=== PATIENT | female | born 1980 | race Caucasian/White ===

== ENCOUNTER 2016-10-17 11:11 | Inpatient (IN) | payer SELFPAY ==
[~2016-10-17] VITALS: Ht 170.2 cm; Wt 88.3 kg
[2016-10-17] VITALS (20 sets, daily range): BP systolic 110–217; BP diastolic 66–108; PULSE 135–156; RESP 28–39; TEMP 95.2–98.3; O2SAT 85–100
[~2016-10-17 11:11] MED LIST: IBUP800T23 PO
[2016-10-17] MEDS ORDERED: SODIUM CHLOR 0.9% 1000 ML INJ 1,000 ML IV SCH (11:22)
[2016-10-17] MEDS ORDERED: SODIUM CHLORIDE 0.9% FLUSH 5 ML FLUSH IVF PRN (11:30)
--- NOTE | 2016-10-17 11:54 | PD ---
HPI Chief Complaint: OD/ Ingestion Time Seen by Provider: 11:21 Travel History International Travel<30 days: No Contact w/Intl Traveler<30days: No Traveled to known affect area: No History of Present Illness HPI Patient is a 36-year-old female brought in by EMS after sustaining a PE arrest at home. According to bystanders on the scene patient is an IV drug user and Apparently Injected street Dilaudid and has been taking [place] as well as Xanax. She had a 90 day supply of Xanax filled 3 days ago and all but10 pills are missing. Patient was coded in the field for a PDA arrest, she received bicarbonate 3 ampules of epinephrine, 2 mg of Narcan was intubated with an ET tube and had ROSC prior to arrival. History is extremely limited by the patient being intubated. [facility] Past Medical History Diminished Hearing: No ?: Unknown Social History Alcohol Use: No Tobacco Use: No Substance Use: Yes (dilaudid) Allergies-Medications (Allergen,Severity, Reaction): Coded Allergies: Penicillin (Verified Allergy, Unknown, 10/17/16) Reported Meds & Prescriptions Reported Meds & Active Scripts Active Ibuprofen 800 Mg Tab 800 Mg PO Q8HR PRN Reported Tegretol (Carbamazepine) 200 Mg Tab 200 Mg PO BID Review of Systems Except as stated in HPI: all other systems reviewed are Neg Physical Exam Narrative GENERAL: Well-developed, overweight white female intubated and comatose. SKIN: Warm and dry. No bruising or lacerations seen on her person. There is a track levi in the left AC fossa. HEAD: Atraumatic. Normocephalic. EYES: Pupils equal and round fixed and dilated. No scleral icterus. No injection or drainage. Vestibular ocular reflex is not present. ENT: No nasal bleeding or discharge. Mucous membranes pink and moist. NECK: Trachea midline. No JVD. CARDIOVASCULAR: Regular rhythm with tachycardia to the 150s. No murmur appreciated. Thready pulses in extremities bounding carotid pulses. RESPIRATORY: Apneic, intubated. [id number] in process. GASTROINTESTINAL: Abdomen soft, non-tender, nondistended. Hepatic and splenic margins not palpable. MUSCULOSKELETAL: No obvious deformities. No clubbing. No cyanosis. No edema. NEUROLOGICAL: GCS of 3 not on sedation. No response to pain no movement of her extremities. PSYCHIATRIC: Unable to assess. Data Data Last Documented VS Vital Signs Date Time Temp Pulse Resp B/P Pulse Ox O2 Delivery O2 Flow Rate FiO2 10/17/16 13:17 97.7 135 160/66 10/17/16 13:07 Ventilator 10/17/16 12:29 100 10/17/16 12:22 100 Orders Electrocardiogram (10/17/16 11:22) Alcohol (Ethanol) (10/17/16 11:22) Ammonia (10/17/16 11:22) Complete Blood Count With Diff (10/17/16 11:22) Comprehensive Metabolic Panel (10/17/16 11:22) Creatine Kinase (Cpk) (10/17/16 11:22) Prothrombin Time / Inr (Pt) (10/17/16 11:22) Act Partial Throm Time (Ptt) (10/17/16 11:22) Salicylates (Aspirin) (10/17/16 11:22) Troponin I (10/17/16 11:22) Tylenol (Acetaminophen) (10/17/16 11:22) Thyroid Stimulating Hormone (10/17/16 11:22) Urinalysis - C+S If Indicated (10/17/16 11:22) Arterial Blood Gas (Abg) (10/17/16 11:22) Blood Culture (10/17/16 11:22) Chest, Single Ap (10/17/16 11:22) Ct Brain W/O Iv Contrast(Rout) (10/17/16 11:22) Blood Glucose (10/17/16 11:22) Ecg Monitoring (10/17/16 11:22) Iv Access Insert/Monitor (10/17/16 11:22) Oximetry (10/17/16 11:22) Urinary Catheter Insert/Apply (10/17/16 11:22) Sodium Chloride 0.9% Flush (Ns Flush) (10/17/16 11:30) Sodium Chlor 0.9% 1000 Ml Inj (Ns 1000 M (10/17/16 11:22) Lactic Acid (10/17/16 11:23) Sodium Bicarbonate 8.4% Inj (Sodium Bica (10/17/16 12:00) Propofol 1000 Mg/100 Ml Inj (Diprivan 10 (10/17/16 12:15) ^ Infusion (10/17/16 12:13) RASS (10/17/16 12:13) Neurological Rass Scale JOSE MIGUEL.Q2H (10/17/16 12:13) Urine Culture (10/17/16 11:40) Vancomycin Inj (Vancomycin Inj) (10/17/16 12:30) Aztreonam Inj (Azactam Inj) (10/17/16 13:00) Potassium Chlor 20 Meq Premix (Kcl 20 Me (10/17/16 12:30) Chest, Single Ap (10/17/16 ) Vecuronium 10 Mg Inj (Norcuron 10 Mg Inj (10/17/16 13:15) Cta Brain W Iv Contrast W 3d (10/17/16 ) Consult Neurosurgery (10/17/16 ) Admit Order (Ed Use Only) (10/17/16 ) Labs Laboratory Tests Test 10/17/16 10/17/16 10/17/16 11:36 11:40 11:43 Lactic Acid Level 11.1 mmol/L Ammonia 95 MCMOL/L White Blood Count 13.2 TH/MM3 Red Blood Count 4.71 MIL/MM3 Hemoglobin 12.7 GM/DL Hematocrit 41.0 % Mean Corpuscular Volume 86.9 FL Mean Corpuscular Hemoglobin 27.0 PG Mean Corpuscular Hemoglobin 31.1 % Concent Red Cell Distribution Width 16.9 % Platelet Count 184 TH/MM3 Mean Platelet Volume 10.0 FL Neutrophils (%) (Auto) 60.9 % Lymphocytes (%) (Auto) 32.5 % Monocytes (%) (Auto) 5.0 % Eosinophils (%) (Auto) 1.0 % Basophils (%) (Auto) 0.6 % Neutrophils # (Auto) 8.0 TH/MM3 Lymphocytes # (Auto) 4.3 TH/MM3 Monocytes # (Auto) 0.7 TH/MM3 Eosinophils # (Auto) 0.1 TH/MM3 Basophils # (Auto) 0.1 TH/MM3 CBC Comment AUTO DIFF Differential Total Cells 100 Counted Neutrophils % (Manual) 50 % Band Neutrophils % 1 % Lymphocytes % 39 % Monocytes % 2 % Eosinophils % 2 % Neutrophils # (Manual) 7.5 TH/MM3 Metamyelocytes 2 % Myelocytes 4 % Differential Comment FINAL DIFF MANUAL Atypical Lymphocytes % Platelet Estimate NORMAL Platelet Morphology Comment NORMAL Red Cell Morphology Comment NORMAL Prothrombin Time 11.6 SEC Prothromb Time International 1.0 RATIO Ratio Activated Partial 26.9 SEC Thromboplast Time Urine Color YELLOW Urine Turbidity HAZY Urine pH 6.0 Urine Specific [place] 1.013 Urine Protein 100 mg/dL Urine Glucose (UA) 300 mg/dL Urine Ketones NEG mg/dL Urine Occult Blood SMALL Urine Nitrite NEG Urine Bilirubin NEG Urine Urobilinogen LESS THAN 2.0 MG/DL Urine Leukocyte Esterase NEG Urine RBC 6 /hpf Urine WBC 20 /hpf Urine Squamous Epithelial <1 /hpf Cells Urine Amorphous Sediment RARE Urine Bacteria FEW /hpf Microscopic Urinalysis Comment CATH-CULTURE IND Sodium Level 137 MEQ/L Potassium Level 2.8 MEQ/L Chloride Level 100 MEQ/L Carbon Dioxide Level 17.7 MEQ/L Anion Gap 19 MEQ/L Blood Urea Nitrogen 9 MG/DL Creatinine 1.51 MG/DL Estimat Glomerular Filtration 39 ML/MIN Rate Random Glucose 311 MG/DL Calcium Level 8.3 MG/DL Total Bilirubin 0.4 MG/DL Aspartate Amino Transf 48 U/L (AST/SGOT) Alanine Aminotransferase 58 U/L (ALT/SGPT) Alkaline Phosphatase 110 U/L Total Creatine Kinase 104 U/L Troponin I LESS THAN 0.02 NG/ML Total Protein 6.9 GM/DL Albumin 3.4 GM/DL Thyroid Stimulating Hormone 2.530 uIU/ML 3rd Gen Salicylates Level 3.9 MG/DL Urine Opiates Screen NEG Acetaminophen Level LESS THAN 2.0 MCG/ML Urine Barbiturates Screen NEG Urine Amphetamines Screen NEG Urine Benzodiazepines Screen POS Urine Cocaine Screen NEG Urine Cannabinoids Screen POS Ethyl Alcohol Level LESS THAN 3 MG/DL Blood Gas Puncture Site RT RADIAL Blood Gas Patient Temperature 98.6 Blood Gas HCO3 16 mmol/L Blood Gas Base Excess -10.4 mmol/L Blood Gas Oxygen Saturation 83 % Arterial Blood pH 7.25 Arterial Blood Partial 37 mmHg Pressure CO2 Arterial Blood Partial 67 mmHG Pressure O2 Arterial Blood Oxygen Content 16.7 Vol % Arterial Blood 3.7 % Carboxyhemoglobin Arterial Blood Methemoglobin 2.2 % Blood Gas Hemoglobin 14.3 G/DL Oxygen Delivery Device VENTILATOR Blood Gas Ventilator Setting AC/20/500/+10 Blood Gas Inspired Oxygen 60 % [facility] Medical Decision Making Medical Screen Exam Complete: Yes Emergency Medical Condition: Yes Interpretation(s) EKG shows sinus tachycardia at a rate of 141 with normal axis and normal R-wave progression. No concerning ST T changes at this time. Intervals within normal limits. This normal EKG except for rate. Differential Diagnosis Cardiac arrest, drug overdose, urinary tract infection, lactic acidosis, ARDS, respiratory failure with hypoxia, aspiration, subarachnoid hemorrhage per Narrative Course Patient was roomed in the emergency department, initially very thready pulses in her upper extremities and a bounding carotid pulse after situated in the bed patient again having bounding pulses in all 4 extremities. Blood pressures perfusable. ABG shows metabolic acidosis with bicarbonate 15.5 and a pH is 7.24. Initial chest x-ray showed right mainstem intubation, initially a 7-1/2 ET tube 26 at the lip was retracted to 24 that radiology recommendations was retracted another 2 cm to 22. Patient's saturations initially were 88 1 she had cold extremities initial core temperature of 95 Fahrenheit. Will allow for permissive hypothermia at this time given her cardiac arrest. CT head negative chest x-ray otherwise negative. Patient's family arrives and according to her patient has recently relapsed into IV Dilaudid use, he states he went to the bathroom and left her alone only for a few moments and when he returned she was unconscious with a needle lying on her chest. He placed cold wash cloths on her forehead and then called 911. No one instructed him to start CPR on scene which she did it was only doing so for a few minutes before paramedics arrived. He states that the patient also has a history of seizure disorder. Patient was then reassessed and is now having some viral gag reflex on the ET tube. She still remains a GCS of 3 unresponsive to painful stimuli. Pupils remained fixed and dilated and there is an absent vestibular ocular reflex. Patient will be placed on propofol drip given a history of seizure disorder. After CT scan of the head, patient had desaturation event to 75% on 100% FiO2 peep of 10. She was disconnected from the vent and placed on [id number] with Peep valve and saturation yifan to 92%. Patient did have red frothy sputum from the ET tube. Repeat chest x-ray does show that she has pulmonary edema and consistent with possible ARDS. Patient ET tube was still right main stem and was retracted and again another 2 cm. Patient's saturation was able to be maintained at 92%. Patient CAT scan read comes back as possible subarachnoid hemorrhage. She was discussed with Dr. Riley who will see in consultation. Patient discussed with Dr. Unger who will place orders for Dr. Palencia who is in the SICU. Dr. Jackson has come to see the patient and assumed care. Patient remains in critical condition. She is being sedated on propofol. She has orders for vecuronium if she continues to fight the vent with her gag. She is still had no response to painful stimuli. Repeat CTA of the head and neck has been ordered and is still pending at time of admission. Critical Care Narrative Aggregate critical care time was 30 minutes. Time to perform other separately billable procedures was not included in the critical care time. My time did not include minutes spent treating any other patients simultaneously or on activities that did not directly contribute to the patient's treatment. The services I provided to this patient were to treat and/or prevent clinically significant deterioration that could result in: , disability, and organ failure. I provided critical care services requiring my management, as noted below: Chart data review, documentation time, medication orders and management, vital sign assessments/reviewing monitor data, ordering and reviewing lab tests, ordering and interpreting/reviewing x-rays and diagnostic studies, care of the patient and discussion of the patient with the admitting physicians. Diagnosis Primary Impression: Cardiac arrest Additional Impressions: Drug overdose Qualified Code: T50.904A - Drug overdose, undetermined intent, initial encounter Urinary tract infection Qualified Code: N39.0 - Urinary tract infection without hematuria, site unspecified Lactic acidosis Coma Qualified Code: R40.2431 - [place] coma scale total score 3-8, in the field ( EMT or ambulance) ARDS (adult respiratory distress syndrome) Acute respiratory failure with hypoxia Subarachnoid hemorrhage Admitting Information Admitting Physician Requests: Admit Condition: Critical Hiren Sheppard MD Oct 17, 2016 11:53
[2016-10-17] MEDS ORDERED: SODIUM BICARBONATE 8.4% INJ 50 MEQ/50 ML SYR IV PUSH ONE (12:00)
--- NOTE | 2016-10-17 12:00 | RADRPT ---
EXAM DATE/TIME: 10/17/2016 11:39 [facility] COMPARISON: No previous studies available for comparison. INDICATIONS : Syncope, ET tube, NG tube placement MEDICAL HISTORY : unobtainable SURGICAL HISTORY : unobtainable ENCOUNTER: Initial ACUITY: 1 day PAIN SCORE: 0/10 LOCATION: Bilateral chest FINDINGS: The cardiac silhouette is enlarged in transverse diameter. Endotracheal tube is in the right mainstem bronchus and should be retracted 4 cm. There is left lower lobe atelectasis versus pneumonia. There is also atelectasis in the right upper lobe. A nasogastric tube is in place with its tip in the stoma ch. CONCLUSION: 1. Endotracheal tube in the right mainstem bronchus. This Should be retracted 4 cm Les Hairston MD on October 17, 2016 at 11:56 Board Certified Radiologist. This report was verified electronically.
[2016-10-17 12:11] LABS: BASOPHIL # 0.1 TH/MM3 (0-0.2); BASOPHIL % 0.6 % (0.0-2.0); EOSINOPHIL # 0.1 TH/MM3 (0-0.4); HEMO FLAGS AUTO DIFF; LYMPH % 32.5 % (9.0-44.0); LYMPHOCYTE # 4.3 TH/MM3 (1.0-4.8); MEAN CELL VOLUME 86.9 FL (80.0-100.0); MEAN CORPUSCULAR HGB CONC 31.1 % (32.0-36.0); NEUT % 60.9 % (16.0-70.0); PLATELET COUNT 184 TH/MM3 (150-450); RED BLOOD COUNT 4.71 MIL/MM3 (4.00-5.30); RED CELL DISTRIBUTION WIDTH 16.9 % (11.6-17.2); WHITE BLOOD COUNT 13.2 TH/MM3 (4.0-11.0)
[2016-10-17 12:15] LABS: BACTERIA, URINE FEW /hpf; BLOOD, URINE SMALL (NEG); COMMENT (UR) CATH-CULTURE IND; CULTURE IF INDICATED CATH CULTURE IND; GLUCOSE,URINE 300 mg/dL (NEG); KETONE, URINE NEG (NEG); NITRITE,URINE NEG (NEG); SQUAMOUS EPITHELIAL CELL URINE <1 /hpf (0-5); URINE COLOR YELLOW (YELLW/STRAW)
[2016-10-17 12:20] LABS: BLOOD GAS BASE EXCESS -10.4 mmol/L (-2-2); BLOOD GAS CARBOXYHEMOGLOBIN 3.7 % (0-4); BLOOD GAS HCO3 16 mmol/L (22-26); BLOOD GAS METHEMOGLOBIN 2.2 % (0-2); BLOOD GAS O2 HGB SATURATION 83 % (90-100); BLOOD GAS OXYGEN CONTENT 16.7 Vol % (12.0-20.0); BLOOD GAS PCO2 37 mmHg (38-42); BLOOD GAS PO2 67 mmHG (61-120); BLOOD GAS TOTAL HGB 14.3 G/DL (12.0-16.0); CRITICAL VALUE YES; TEMP CORR TO 98.6
[2016-10-17 12:21] LABS: DRAW SITE RT RADIAL; FIO2 60 %; NUMBER OF ARTERIAL PUNCTURES 1; OXYGEN DEVICE VENTILATOR; STAT YES; ULNAR PULSE PRESENT; VENT SETTINGS AC/20/500/+10
[2016-10-17 12:23] LABS: APTT (PATIENT) 26.9 SEC (24.3-30.1); PROTHROMBIN TIME - PATIENT 11.6 SEC (9.8-11.6)
[2016-10-17] MEDS: PROPOFOL 1000 MG/100 ML INJ 100 ML IV SCH ×2 (12:23→17:34)
[2016-10-17 12:28] LABS: ANION GAP 19 MEQ/L (5-15); AST (GOT) 48 U/L (15-37); BICARBONATE 17.7 MEQ/L (21.0-32.0); BLOOD UREA NITROGEN 9 MG/DL (7-18); CHLORIDE 100 MEQ/L (98-107); GLOMERULAR FILTRATION RATE 39 ML/MIN (>89); SODIUM (NA) 137 MEQ/L (136-145)
[2016-10-17 12:30] LABS: POTASSIUM 2.8 MEQ/L (3.5-5.1)
[2016-10-17] MEDS ORDERED: VANCOMYCIN INJ 1,000 MG in SODIUM CHLOR 0.9% 250 ML INJ 250 ML IV ONE (12:30)
[2016-10-17] MEDS ORDERED: POTASSIUM CHLOR 20 MEQ PREMIX 100 ML IV ONE (12:30)
[2016-10-17 12:38] LABS: ACETAMINOPHEN LESS THAN 2.0 MCG/ML (10.0-30.0); ALKALINE PHOSPHATASE 110 U/L (45-117); ALT (GPT) 58 U/L (10-53); CREATINE KINASE 104 U/L (26-192); TOTAL BILIRUBIN ADULT 0.4 MG/DL (0.2-1.0)
[2016-10-17 12:52] LABS: BANDS 1 % (0-6); EOSINOPHILS 2 % (0-4); METAMYELOCYTES 2 % (0-1); MYELOCYTES 4 % (0-0); NEUTROPHIL # MANUAL DIFF 7.5 TH/MM3 (1.8-7.7); POLYS (SEG NEUTROPHILS) 50 % (16-70); WBC DIFF SAMPLE 100
[2016-10-17 12:55] LABS: PLATELET ESTIMATE SMEAR NORMAL (NORMAL); PLATELET MORPHOLOGY NORMAL (NORMAL); SCAN/DIFF FINAL DIFF MANUAL
[2016-10-17] MEDS ORDERED: AZTREONAM INJ 2,000 MG in SODIUM CHLORIDE 0.9% INJ 100 ML IV ONE (13:00)
[2016-10-17] MEDS ORDERED: VECURONIUM IV SCH (13:15)
[2016-10-17] MEDS ORDERED: SODIUM CHLORIDE 0.9% IV SCH (13:15)
--- NOTE | 2016-10-17 13:16 | RADRPT ---
EXAM DATE/TIME: 10/17/2016 12:04 [facility] COMPARISON: No previous studies available for comparison. INDICATIONS : Altered mental status. Found unresponsive RADIATION DOSE: 56.35 CTDIvol (mGy) MEDICAL HISTORY : Non-responsive. SURGICAL HISTORY : Non-responsive. ENCOUNTER: Initial ACUITY: 1 day PAIN SCALE: Non-responsive LOCATION: Cranial TECHNIQUE: Multiple contiguous axial images were obtained of the head. Using automated exposure control and adjustment of the mA and/or kV according to patient size, radiation dose was kept as low as reasonably achievable to obtain optimal diagnostic quality images. FINDINGS: Noncontrast head CT demonstrates there are some areas of increased density aloing the anterior falx a nd in the right sylvian fissure. It could be subarachnoid hemorrhage. There is some prominence of t he anterior communicating artery region. No subdural or epidural hematoma is identified. Bone windows are negative. CONCLUSION: Questionable subarachnoid hemorrhage with some prominence of the anterior communicating artery. CTA would be helpful. Alin Child MD on October 17, 2016 at 13:08 Board Certified Radiologist. This report was verified electronically.
[2016-10-17] MEDS ORDERED: TEGR200T PO (13:20)
--- NOTE | 2016-10-17 13:55 | RADRPT ---
EXAM DATE/TIME: 10/17/2016 13:43 [facility] COMPARISON: CHEST SINGLE AP, October 17, 2016, 11:39. INDICATIONS : Short of breath, check position of ET tube, found unresponsive today MEDICAL HISTORY : unobtainable SURGICAL HISTORY : unobtainable ENCOUNTER: Subsequent ACUITY: 1 day PAIN SCORE: Non-responsive. LOCATION: Bilateral chest FINDINGS: A single view of the chest demonstrates repositioned endotracheal tube at the level of the rosangela. Bi lateral patchy airspace disease with consolidation left lung base could be atelectasis. The cardiomed iastinal contours are unremarkable. Osseous structures are intact. CONCLUSION: Endotracheal tube has been repositioned now at the level of the rosangela. NG tube in good position. Dif fuse perihilar infiltrates and consolidation in both lungs left greater than right. Alin Child MD on October 17, 2016 at 13:52 Board Certified Radiologist. This report was verified electronically.
[2016-10-17] MEDS ORDERED: IODIXANOL 320 MG/ML 10 ML VIAL (for Rad CT) IV ONE (14:16)
[2016-10-17 14:23] LABS: AMPHETAMINE, URINE NEG (NEG); BARBITURATES, URINE NEG (NEG); COCAINE, URINE NEG (NEG)
[2016-10-17] MEDS ORDERED: POTASSIUM CHLORIDE 25 MEQ EFFERVESCENT TAB PO ONE (14:45)
[2016-10-17] MEDS ORDERED: CHLORHEXIDINE GLUCONATE 2 % 1 PACK (2 CLOTHS) TOP PRN (15:00)
[2016-10-17] MEDS ORDERED: MAGNESIUM SULFATE INJ 2 GM in SODIUM CHLORIDE 0.9% INJ 96 ML IV PRN (15:00)
[2016-10-17] MEDS ORDERED: GLUCAGON 1 MG/ML VIAL OTHER PRN (15:00)
[2016-10-17] MEDS ORDERED: POTASSIUM PHOSPHATE MONOBASIC 500 MG TAB PO/TUBE PRN (15:00)
[2016-10-17] MEDS ORDERED: SODIUM PHOSPHATE INJ 30 MMOL in SODIUM CHLOR 0.9% 250 ML INJ 240 ML IV PRN (15:00)
[2016-10-17] MEDS ORDERED: POTASSIUM CL 40 MEQ/30 ML LIQ UDC PO/TUBE PRN ×2 (15:00)
[2016-10-17] MEDS ORDERED: DEXTROSE 50% IN WATER 50 ML VIAL(D50) IV PUSH PRN (15:00)
[2016-10-17] MEDS ORDERED: MISCELLANEOUS NURSING INFORMATION XX SCH (15:00)
[2016-10-17] MEDS ORDERED: POTASSIUM CHLOR 20 MEQ PREMIX 100 ML IV PRN ×2 (15:00)
[2016-10-17] MEDS ORDERED: POTASSIUM PHOSPHATE INJ 30 MMOL in SODIUM CHLOR 0.9% 250 ML INJ 250 ML IV PRN (15:00)
[2016-10-17] MEDS ORDERED: MAGNESIUM SULFATE INJ 4 GM in SODIUM CHLORIDE 0.9% INJ 92 ML IV PRN (15:00)
[2016-10-17] MEDS ORDERED: POTASSIUM CHLOR 40 MEQ PREMIX 100 ML IV PRN (15:00)
[2016-10-17] MEDS ORDERED: MAGNESIUM OXIDE 400 MG TAB PO PRN (15:00)
[2016-10-17] MEDS ORDERED: POTASSIUM PHOSPHATE MONOBASIC 500 MG TAB PO PRN (15:00)
[2016-10-17] MEDS ORDERED: SODIUM CHLORIDE 0.9% FLUSH 5 ML FLUSH IV FLUSH PRN (15:00)
--- NOTE | 2016-10-17 15:07 | RADRPT ---
EXAM DATE/TIME: 10/17/2016 14:01 [facility] COMPARISON: No previous studies available for comparison. INDICATIONS : Overdose. Abnormal CT Brain w/o. Evaluate for bleed. IV CONTRAST: 50 cc Visipaque (iodixanol) IV ; Cumulative dose for multiple exams. RADIATION DOSE: 17.18 CTDIvol (mGy) ; Combined studies MEDICAL HISTORY : Seizures. SURGICAL HISTORY : None. ENCOUNTER: Initial ACUITY: 1 day PAIN SCALE: Non-responsive LOCATION: cranial TECHNIQUE: Volumetric scanning was performed using a multi-row detector CT scanner. The data was post processed with a variety of visualization algorithms including full volume maximum intensity projection, multi -planar sliding thin slab reformation, curved planar reformation, and surface rendering techniques. Using automated exposure control and adjustment of the mA and/or kV according to patient size, radiat ion dose was kept as low as reasonably achievable to obtain optimal diagnostic quality images. FINDINGS: There is excellent visualization of the major intracranial arteries out to the second-order branch ve ssels. There is no evidence for aneurysm, vessel truncation or stenosis, and no evidence for vascula r malformation. The patient has a patent north fork of [place] CONCLUSION: Normal examination. No evidence of aneurysms identified. Specifically the anterior communicating art gómez region is unremarkable. Alin Child MD on October 17, 2016 at 15:05 Board Certified Radiologist. This report was verified electronically.
--- NOTE | 2016-10-17 15:08 | RADRPT ---
EXAM DATE/TIME: 10/17/2016 14:01 [facility] COMPARISON: No previous studies available for comparison. INDICATIONS : Overdose. Abnormal CT Brain w/o. Evaluate for bleed. IV CONTRAST: 50 cc Visipaque (iodixanol) IV ; Cumulative dose for multiple exams. RADIATION DOSE: 17.18 CTDIvol (mGy) ; Combined studies MEDICAL HISTORY : Seizures. SURGICAL HISTORY : None. ENCOUNTER: Initial ACUITY: 1 day PAIN SCALE: Non-responsive LOCATION: neck TECHNIQUE: Volumetric scanning was performed using a multirow detector CT scanner. The data was post processed with a variety of visualization algorithms including full-volume maximum intensity projection, multip lanar sliding thin-slab reformation, curved-planar reformation, and surface-rendering techniques. Us ing automated exposure control and adjustment of the mA and/or kV according to patient size, radiatio n dose was kept as low as reasonably achievable to obtain optimal diagnostic quality images. FINDINGS: AORTIC ARCH: There is a three-vessel origin of the great vessels from the aorta. No evidence of ostial narrowing. RIGHT CAROTID: The common carotid artery is intact. The carotid bulb has a normal configuration without ulceration o r narrowing. The internal carotid artery lumen is smooth without stenosis. The external carotid leydi ry is intact. LEFT CAROTID: The common carotid artery is intact. The carotid bulb has a normal configuration without ulceration or narrowing. The internal carotid artery lumen is smooth without stenosis. The external carotid ar silvia is intact. VERTEBRALS: The vertebral arteries have a symmetric diameter. No stenotic lesions are seen. CONCLUSION: Normal examination. Dense infiltrate throughout the lungs Alin Child MD on October 17, 2016 at 15:06 Board Certified Radiologist. This report was verified electronically.
[2016-10-17] MEDS: INSULIN ASPART SUPPLEMENTAL SCALE SQ SCH ×2 (16:00→21:00)
[2016-10-17] MEDS ORDERED: RESP: ALBUTEROL 2.5 MG/IPRATROPIUM 0.5 MG NEB (PRN) INH (16:00)
[2016-10-17] MEDS ORDERED: BISACODYL EC 5 MG TABEC PO PRN (16:00)
[2016-10-17] MEDS: DOCUSATE SODIUM 100 MG/10 ML UDC G-TUBE SCH (16:00)
[2016-10-17] MEDS ORDERED: SENNOSIDES SYRUP 8.8 MG/5 ML CUP G-TUBE PRN (16:00)
--- NOTE | 2016-10-17 16:00 | HHI.HP ---
HPI Service Critical Care Medicine Primary Care Physician No Primary Care Physician Admission Diagnosis Overdose, SAH, Post cardiac arrest. Diagnosis: Travel History International Travel<30 Days: No Contact w/Intl Traveler <30 Da: No Traveled to Known Affected Are: No Sepsis Criteria SIRS Criteria (2 or more): Temp > 100.9 or < 96.8, Heart rate over 90 Septic Shock Criteria: Lactic acid >=4 History of Present Illness HPI This is a 36-year-old female brought in by EMS after sustaining a PE arrest at home. Per report by bystanders at the scene the patient is an IV drug user, and had been utilizing IV Dilaudid and additionally Lucama Xanax. She had a 90 day supply of Xanax filled 3 days ago and all but10 pills are missing. Patient was coded in the field for a PEA arrest, she received bicarbonate 3 ampules of epinephrine, 2 mg of Narcan was intubated with an ET tube and had ROSC prior to arrival. Upon obtaining history from the , patient was found lying supine in bed, with a syringe lying on her chest, needle levi in her arm. The allowed her to sleep for a while, but when she did not respond he contacted EMS. Upon arrival of EMS chest compressions, ACLS were initiated. Upon arrival to the ED, imaging and laboratory evaluation was performed, initial drug screen negative, CT scan revealed possible subarachnoid hemorrhage. Initial evaluation revealed pupils nonresponsive, patient unresponsive to deep pain. Neurosurgery was contacted. CT angio of brain performed results pending. Critical care medicine was contacted for evaluation and management History PFSH Past Medical History Diminished Hearing: No ?: Unknown Social History Alcohol Use: No Tobacco Use: No Substance Use: Yes (dilaudid) Allergies-Medications Allergies-Medications (Allergen,Severity, Reaction): Coded Allergies: Penicillin (Verified Allergy, Unknown, 10/17/16) Reported Meds & Prescriptions Reported Meds & Active Scripts Active Ibuprofen 800 Mg Tab 800 Mg PO Q8HR PRN Reported Tegretol (Carbamazepine) 200 Mg Tab 200 Mg PO BID ROS Review of Systems Except as stated in HPI: all other systems reviewed are Neg Past Family Social History Allergies: Coded Allergies: Penicillin (Verified Allergy, Unknown, 10/17/16) Physical Exam Vital Signs Vital Signs Date Time Temp Pulse Resp B/P Pulse Ox O2 Delivery O2 Flow Rate FiO2 10/17/16 13:17 97.7 135 160/66 10/17/16 13:07 138 160/66 Ventilator 10/17/16 12:46 149 178/82 Ventilator 10/17/16 12:29 154 217/108 100 Ventilator 10/17/16 12:22 100 100 10/17/16 11:33 95.2 98 Ventilator 10/17/16 11:32 144 177/ 10/17/16 11:25 142 110/70 85 Ventilator 10/17/16 11:20 87 100 10/17/16 11:14 135 110/70 85 Laboratory Laboratory Tests Test 10/17/16 10/17/16 10/17/16 11:36 11:40 11:43 Lactic Acid Level 11.1 Ammonia 95 White Blood Count 13.2 Red Blood Count 4.71 Hemoglobin 12.7 Hematocrit 41.0 Mean Corpuscular Volume 86.9 Mean Corpuscular Hemoglobin 27.0 Mean Corpuscular Hemoglobin 31.1 Concent Red Cell Distribution Width 16.9 Platelet Count 184 Mean Platelet Volume 10.0 Neutrophils (%) (Auto) 60.9 Lymphocytes (%) (Auto) 32.5 Monocytes (%) (Auto) 5.0 Eosinophils (%) (Auto) 1.0 Basophils (%) (Auto) 0.6 Neutrophils # (Auto) 8.0 Lymphocytes # (Auto) 4.3 Monocytes # (Auto) 0.7 Eosinophils # (Auto) 0.1 Basophils # (Auto) 0.1 CBC Comment AUTO DIFF Differential Total Cells 100 Counted Neutrophils % (Manual) 50 Band Neutrophils % 1 Lymphocytes % 39 Monocytes % 2 Eosinophils % 2 Neutrophils # (Manual) 7.5 Metamyelocytes 2 Myelocytes 4 Differential Comment FINAL DIFF MANUAL Atypical Lymphocytes Platelet Estimate NORMAL Platelet Morphology Comment NORMAL Red Cell Morphology Comment NORMAL Prothrombin Time 11.6 Prothromb Time International 1.0 Ratio Activated Partial 26.9 Thromboplast Time Urine Color YELLOW Urine Turbidity HAZY Urine pH 6.0 Urine Specific [place] 1.013 Urine Protein 100 Urine Glucose (UA) 300 Urine Ketones NEG Urine Occult Blood SMALL Urine Nitrite NEG Urine Bilirubin NEG Urine Urobilinogen LESS THAN 2.0 Urine Leukocyte Esterase NEG Urine RBC 6 Urine WBC 20 Urine Squamous Epithelial <1 Cells Urine Amorphous Sediment RARE Urine Bacteria FEW Microscopic Urinalysis Comment CATH-CULTURE IND Sodium Level 137 Potassium Level 2.8 Chloride Level 100 Carbon Dioxide Level 17.7 Anion Gap 19 Blood Urea Nitrogen 9 Creatinine 1.51 Estimat Glomerular Filtration 39 Rate Random Glucose 311 Calcium Level 8.3 Total Bilirubin 0.4 Aspartate Amino Transf 48 (AST/SGOT) Alanine Aminotransferase 58 (ALT/SGPT) Alkaline Phosphatase 110 Total Creatine Kinase 104 Troponin I LESS THAN 0.02 Total Protein 6.9 Albumin 3.4 Thyroid Stimulating Hormone 2.530 3rd Gen Salicylates Level 3.9 Urine Opiates Screen NEG Acetaminophen Level LESS THAN 2.0 Urine Barbiturates Screen NEG Urine Amphetamines Screen NEG Urine Benzodiazepines Screen POS Urine Cocaine Screen NEG Urine Cannabinoids Screen POS Ethyl Alcohol Level LESS THAN 3 Blood Gas Puncture Site RT RADIAL Blood Gas Patient Temperature 98.6 Blood Gas HCO3 16 Blood Gas Base Excess -10.4 Blood Gas Oxygen Saturation 83 Arterial Blood pH 7.25 Arterial Blood Partial 37 Pressure CO2 Arterial Blood Partial 67 Pressure O2 Arterial Blood Oxygen Content 16.7 Arterial Blood 3.7 Carboxyhemoglobin Arterial Blood Methemoglobin 2.2 Blood Gas Hemoglobin 14.3 Oxygen Delivery Device VENTILATOR Blood Gas Ventilator Setting AC/20/500/+10 Blood Gas Inspired Oxygen 60 Date/Time Procedure Status Source Growth 10/17/16 11:43 Aerobic Blood Culture Received Blood Peripheral Pending 10/17/16 11:43 Anaerobic Blood Culture Received Blood Peripheral Pending 10/17/16 11:40 Urine Culture Received Urine Catheterized Urine Pending Result Diagram: 10/17/16 1140 10/17/16 1140 Imaging Last Impressions Head CT 10/17/16 1122 Signed Impressions: Service Date/Time: Monday, October 17, 2016 12:04 - CONCLUSION: Questionable subarachnoid hemorrhage with some prominence of the anterior communicating artery. CTA would be helpful. Alin Child MD Chest X-Ray 10/17/16 1122 Signed Impressions: Service Date/Time: Monday, October 17, 2016 11:39 - CONCLUSION: 1. Endotracheal tube in the right mainstem bronchus. This Should be retracted 4 cm Les Hairston MD Neck CTA 10/17/16 0000 Signed Impressions: Service Date/Time: Monday, October 17, 2016 14:01 - CONCLUSION: Normal examination. Dense infiltrate throughout the lungs Alin Child MD Head CTA 10/17/16 0000 Signed Impressions: Service Date/Time: Monday, October 17, 2016 14:01 - CONCLUSION: Normal examination. No evidence of aneurysms identified. Specifically the anterior communicating artery region is unremarkable. Alin Child MD Septic Shock Reassessment Heart: Other (Sinus Tachycardia) Lungs: Course Skin: Cold Assessment and Plan Assessment and Plan This is a 36-year-old female, found unresponsive by her for unknown period of time. The patient was found with syringe and needle lying on chest, unknown medication administered. The patient was found by EMS in PEA arrest, GCS upon presentation 3. Upon intubation the patient was noted to have copious amounts of fluids/secretion notably indicative of probable aspiration. Plan by systems: Neurologic: Toxic, metabolic encephalopathy Anoxic encephalopathy? Subarachnoid hemorrhage History of IV drug abuse Seizure disorder Anxiety disorder Hyperammonemia Drug overdose -Initial exam upon presentation to the ED GCS of 3T, patient was placed on propofol infusion for CT angio, now discontinued. The patient remains GCS 3T .pupils nonreactive, no response to deep pain, noted fine tremors supra orbital and temporal muscular regions. Per family patient has a history of seizure disorder, previously on Tegretol. The patient was found down for unknown period of time in PEA arrest. -Continued neurological exam per ICU protocol-initial exam no corneal reflex, eyelid reflex, pupils 3 mm no reactivity, no response to deep pain, on no sedation. -Neurosurgery consulted-Dr. Riley, follow-up recommendations -Consult Neurology -Will initiate seizure prophylaxis Keppra load 1 GM, then 500mg BID -Will hold propofol infusion for now, will initiate if necessary regarding myoclonus -Ammonia level 95-lactulose 4 times a day, repeat ammonia level in a.m. -Obtain Tegretol level -Obtain stat EEG-rule out subclinical seizures -Follow-up expanded urine drug toxicity screen -Obtain records from family/ regarding prescription medications Respiratory: Respiratory arrest Pulmonary edema ARDS Probable aspiration -Initial x-ray clear, now chest x-ray pneumonia versus atelectasis, diffuse, noted pink frothy sputum -Patient requiring pressure support, increasing O2 requirements FiO2 now 90% -Mechanical ventilation settings PC/AC /22/12/0.90 -Obtain ABGs -Wean FiO2 to less than 50%, as soon as clinically possible -Repeat chest x-ray in a.m. -Bronchodilators every 6 hours scheduled every 2 hours when necessary -Lasix Cardiovascular: PEA arrest -Normotensive, no vasopressor support at this time, will initiate to maintain MAP greater than 65 -In view of the patient being an unwitnessed arrest , and subsequent rhythm PEA arrest with possible hypoxic encephalopathy the patient will not benefit from hypothermic cooling. Will maintain temperature above 92 F, patient currently 95 , to avoid coagulopathy,and neurological injury. -EKG sinus tach -In view of subarachnoid hemorrhage CT angiogram pulmonary not performed, due to inability to anticoagulate if pulmonary embolus found -Telemetry -Obtain echo follow-up results Renal: -Insert temperature sensing Anthony -Monitor hourly urine output -- Strict I/Os FEN/GI: Hypokalemia Metabolic acidosis -Normal saline at 84 cc an hour -Monitor CMP, will repeat follow-up results -Initial potassium level 2.8 , potassium repleted IV and by mouth -Replete electrolytes per ICU protocol -Magnesium, Phos pending -Elevated liver enzymes-monitor LFTs, AST 48, ALT 58 -Repeat Tylenol level, -Obtain Hepatitis panel -Elevated ammonia levellactulose QID, repeat ammonia level in a.m. Heme/ID: Lactic acidosis Leukocytosis Multilobular pneumonia -Begin cefepime azithromycin, and Flagyl for probable aspiration -Monitor CBC, WBC 13.2 -Repeat lactate level -Obtain PT/INR Endocrine: Hyperglycemia of critical illness -Glucose monitoring per ICU protocol low dose regimen -- SSI Prophylaxis: GI Prophylaxis Protonix IV DVT Prophylaxis -- SCDs No pharmacological DVT prophylaxis secondary to subarachnoid hemorrhage Lines: Right triple lumen femoral line, Dr. Sheppard, peripheral IV's Dispo: my billing statement This patient remains critically ill with one or more organ systems which are or may become a threat to life. I have spent in excess of 60 minutes discontinuously in the care and management of this patient. This time is exclusive of procedures, and includes, but is not limited to, evaluation of the patient, review of the medical record, discussions with family, consultants, nursing staff, or respiratory therapy, and documentation in the medical record. Code Status Full Discussed Condition With ED RN at bedside Briseida Jackson MD Oct 17, 2016 16:00
[2016-10-17] MEDS ORDERED: levETIRAcetam 1000 MG INJ 100 ML IV ONE (16:45)
--- NOTE | 2016-10-17 17:07 | MG ---
cc: JITENDRA GIL M.D. Lab No: Date: 10/17/2016 Age: Sex: F Race: TEST NUMBER [id number] - 150 TECHNIQUE 17 channel EEG. DESCRIPTION Diprivan was held 45 minutes prior to the EEG. The background rhythm reveals a very low amplitude, very slow activity. The amplitude is roughly 2-3 microvolts. There is fairly frequent muscle artifact. Frequency is roughly 2 Hz. Photic stimulation does not result in a driving response. INTERPRETATION Severely abnormal EEG with minimal electrographic activity identified consistent with severe encephalopathic state. MD WHITNEY Navarro/[place] /4:49 PM /5:01 PM
[2016-10-17] MEDS: SODIUM CHLOR 0.9% 1000 ML INJ 1,000 ML IV SCH (17:21)
[2016-10-17] MEDS: AZITHROMYCIN INJ 500 MG in SODIUM CHLOR 0.9% 250 ML INJ 250 ML IV SCH (17:21)
[2016-10-17 17:27] LABS: BLOOD GAS BASE EXCESS -12.8 mmol/L (-2-2); BLOOD GAS CARBOXYHEMOGLOBIN 0.7 % (0-4); BLOOD GAS HCO3 13 mmol/L (22-26); BLOOD GAS METHEMOGLOBIN 0.9 % (0-2); BLOOD GAS O2 HGB SATURATION 97 % (90-100); BLOOD GAS OXYGEN CONTENT 22.1 Vol % (12.0-20.0); BLOOD GAS PCO2 33 mmHg (38-42); BLOOD GAS PO2 165 mmHg (61-120); CRITICAL VALUE YES; OXYGEN DEVICE VENTILATOR; TEMP CORR TO 98.6
[2016-10-17 17:28] LABS: DRAW SITE RT BRACHIAL; FIO2 90 %; NUMBER OF ARTERIAL PUNCTURES 1; STAT YES; ULNAR PULSE PRESENT
[2016-10-17] MEDS: metroNIDAZOLE 500 MG INJ 100 ML IV SCH (17:35)
[2016-10-17] MEDS: LACTULOSE SYRUP 20 GM/30 ML CUP PO SCH ×2 (18:00→21:00)
[2016-10-17] MEDS: ARTIFICIAL TEARS OPTH SOLN 15 ML BTL EACH EYE SCH (18:00)
[2016-10-17 18:08] LABS: LACTIC ACID GHOST NOT REPORTABLE
[2016-10-17 18:19] LABS: BLOOD GAS VENOUS BASE EXCESS -17.1 mmol/L (-2-2); BLOOD GAS VENOUS HCO3 13 mmol/L (22-26); BLOOD GAS VENOUS O2 CONTENT 1.7 Vol % (9.0-17.0); BLOOD GAS VENOUS O2 HGB SAT 9 % (70-76); BLOOD GAS VENOUS PCO2 63 mmHg (44-48); BLOOD GAS VENOUS PO2 18 mmHg (35-40); BLOOD GAS VENOUS pH 6.94 (7.360-7.400); CRITICAL VALUE YES; TEMP CORR TO 98.6
[2016-10-17 18:20] LABS: DRAW SITE CENTRAL LINE; FIO2 100 %; LITER FLOW 15 L/M; OXYGEN DEVICE AMBU BAG; STAT YES
[2016-10-17 18:42] LABS: INTERNATIONAL NORMALIZED RATIO 1.3 RATIO; PROTHROMBIN TIME - PATIENT 14.7 SEC (9.8-11.6)
--- NOTE | 2016-10-17 18:43 | HHI.CCPN ---
History - Height: 170.18 cm Weight: 84.09 kg Allergies: Coded Allergies: Penicillin (Verified Allergy, Unknown, 10/17/16) Major 24 Hour Events CPR Note 0- PEA arrest. CPR initiated. See ACLS code sheet. Assessment/Plan Assessment/Plan - PEA Arrest -CPR ACLS initiated 1809, with ROSC Discussed events with family. Time Spend with Patient Critical Care Minutes: 40 Briseida Jackson MD Oct 17, 2016 18:42
--- NOTE | 2016-10-17 18:44 | PD.CONS ---
History of Present Illness Service Neurosurgery Consult Requested By Emergency room-Dr. Sheppard Reason for Consult Possible mild subarachnoid hemorrhage Primary Care Physician No Primary Care Physician Diagnoses: History of Present Illness 36-year-old female history of IV drug abuse including hydromorphone. Found unresponsive by her earlier today. According to emergency room report, he allowed her to sleep for a while, and called EMS after she remained unresponsive. However discussion with the patient's other family members, indicates that the patient was awake and relatively alert as noted by the , who returned to see her approximately 5 minutes later at which time she was unresponsive and he called EMS. Therefore, questionable period of time that the patient was unresponsive. ACLS started upon EMS arrival with intubation en route to the hospital. Patient remained unresponsive with nonreactive pupils on initial hospital evaluation. No seizure activity reported. Review of Systems Other Unable to obtain review of systems directly from the patient Past Family Social History Allergies: Coded Allergies: Penicillin (Verified Allergy, Unknown, 10/17/16) Past Medical History History of IV drug abuse Seizure history Past Surgical History No major surgeries reported Reported Medications Reported Meds & Active Scripts Active Ibuprofen 800 Mg Tab 800 Mg PO Q8HR PRN Reported Tegretol (Carbamazepine) 200 Mg Tab 200 Mg PO BID Social History History of IV and other drug abuse Physical Exam Vital Signs Vital Signs Date Time Temp Pulse Resp B/P Pulse Ox O2 Delivery O2 Flow Rate FiO2 10/17/16 15:57 150 143/91 100 Ventilator 10/17/16 14:00 93 100 10/17/16 13:17 97.7 135 160/66 10/17/16 13:07 138 160/66 Ventilator 10/17/16 12:46 149 178/82 Ventilator 10/17/16 12:29 154 217/108 100 Ventilator 10/17/16 12:22 100 100 10/17/16 11:33 95.2 98 Ventilator 10/17/16 11:32 144 177/ 10/17/16 11:25 142 110/70 85 Ventilator 10/17/16 11:20 87 100 10/17/16 11:14 135 110/70 85 Physical Exam GENERAL: Moderately obese patient, intubated, examined in the intensive surgical care unit. SKIN: A few areas of scattered ecchymosis HEAD: Atraumatic. Normocephalic. EYES: Sclerae clear and nonicteric ENT: No CSF otorrhea or rhinorrhea NECK: No nuchal rigidity CARDIOVASCULAR: Regular rate and rhythm RESPIRATORY: Rapid shallow spontaneous respirations. Intubated MUSCULOSKELETAL: No extremity edema or cyanosis. No long bone or joint deformity NEUROLOGICAL: No intravenous sedation at the time of examination. No response to voice No eye-opening spontaneously or to deep pain Pupils 2 mm nonreactive Upward gaze with otherwise absent oculocephalic responses Absent corneal responses No response to deep pain all extremities Moderate cough and gag response Ryan's response absent bilateral No ankle clonus Laboratory Laboratory Tests Test 10/17/16 10/17/16 10/17/16 10/17/16 11:36 11:40 11:41 11:43 Lactic Acid Level 11.1 Ammonia 95 White Blood Count 13.2 Red Blood Count 4.71 Hemoglobin 12.7 Hematocrit 41.0 Mean Corpuscular Volume 86.9 Mean Corpuscular Hemoglobin 27.0 Mean Corpuscular Hemoglobin 31.1 Concent Red Cell Distribution Width 16.9 Platelet Count 184 Mean Platelet Volume 10.0 Neutrophils (%) (Auto) 60.9 Lymphocytes (%) (Auto) 32.5 Monocytes (%) (Auto) 5.0 Eosinophils (%) (Auto) 1.0 Basophils (%) (Auto) 0.6 Neutrophils # (Auto) 8.0 Lymphocytes # (Auto) 4.3 Monocytes # (Auto) 0.7 Eosinophils # (Auto) 0.1 Basophils # (Auto) 0.1 CBC Comment AUTO DIFF Differential Total Cells 100 Counted Neutrophils % (Manual) 50 Band Neutrophils % 1 Lymphocytes % 39 Monocytes % 2 Eosinophils % 2 Neutrophils # (Manual) 7.5 Metamyelocytes 2 Myelocytes 4 Differential Comment FINAL DIFF MANUAL Atypical Lymphocytes Platelet Estimate NORMAL Platelet Morphology Comment NORMAL Red Cell Morphology Comment NORMAL Prothrombin Time 11.6 Prothromb Time International 1.0 Ratio Activated Partial 26.9 Thromboplast Time Urine Color YELLOW Urine Turbidity HAZY Urine pH 6.0 Urine Specific [place] 1.013 Urine Protein 100 Urine Glucose (UA) 300 Urine Ketones NEG Urine Occult Blood SMALL Urine Nitrite NEG Urine Bilirubin NEG Urine Urobilinogen LESS THAN 2.0 Urine Leukocyte Esterase NEG Urine RBC 6 Urine WBC 20 Urine Squamous Epithelial <1 Cells Urine Amorphous Sediment RARE Urine Bacteria FEW Microscopic Urinalysis Comment CATH-CULTURE IND Sodium Level 137 Potassium Level 2.8 Chloride Level 100 Carbon Dioxide Level 17.7 Anion Gap 19 Blood Urea Nitrogen 9 Creatinine 1.51 Estimat Glomerular Filtration 39 Rate Random Glucose 311 Calcium Level 8.3 Total Bilirubin 0.4 Aspartate Amino Transf 48 (AST/SGOT) Alanine Aminotransferase 58 (ALT/SGPT) Alkaline Phosphatase 110 Total Creatine Kinase 104 Troponin I LESS THAN 0.02 Total Protein 6.9 Albumin 3.4 Thyroid Stimulating Hormone 2.530 3rd Gen Salicylates Level 3.9 Urine Opiates Screen NEG Acetaminophen Level LESS THAN 2.0 Urine Barbiturates Screen NEG Urine Amphetamines Screen NEG Urine Benzodiazepines Screen POS Urine Cocaine Screen NEG Urine Cannabinoids Screen POS Ethyl Alcohol Level LESS THAN 3 Phosphorus Level 8.5 Blood Gas Puncture Site RT RADIAL Blood Gas Patient Temperature 98.6 Blood Gas HCO3 16 Blood Gas Base Excess -10.4 Blood Gas Oxygen Saturation 83 Arterial Blood pH 7.25 Arterial Blood Partial 37 Pressure CO2 Arterial Blood Partial 67 Pressure O2 Arterial Blood Oxygen Content 16.7 Arterial Blood 3.7 Carboxyhemoglobin Arterial Blood Methemoglobin 2.2 Blood Gas Hemoglobin 14.3 Oxygen Delivery Device VENTILATOR Blood Gas Ventilator Setting AC/20/500/+10 Blood Gas Inspired Oxygen 60 Test 10/17/16 10/17/16 10/17/16 16:01 17:13 18:11 Lactic Acid Level 7.9 Blood Gas Puncture Site RT BRACHIAL CENTRAL LINE Blood Gas Patient Temperature 98.6 98.6 Blood Gas HCO3 13 Blood Gas Base Excess -12.8 Blood Gas Oxygen Saturation 97 Arterial Blood pH 7.23 Arterial Blood Partial 33 Pressure CO2 Arterial Blood Partial 165 Pressure O2 Arterial Blood Oxygen Content 22.1 Arterial Blood 0.7 Carboxyhemoglobin Arterial Blood Methemoglobin 0.9 Blood Gas Hemoglobin 16.0 Oxygen Delivery Device VENTILATOR AMBU BAG Blood Gas Ventilator Setting Blood Gas Inspired Oxygen 90 100 Venous Blood pH 6.94 Venous Blood Partial Pressure 63 CO2 Venous Blood Partial Pressure 18 O2 Venous Blood HCO3 13 Venous Blood Oxygen Saturation 9 Venous Blood Oxygen Content 1.7 Venous Blood Base Excess -17.1 Blood Gas Liter Flow 15 Date/Time Procedure Status Source Growth 10/17/16 11:43 Aerobic Blood Culture Received Blood Peripheral Pending 10/17/16 11:43 Anaerobic Blood Culture Received Blood Peripheral Pending 10/17/16 11:40 Urine Culture Received Urine Catheterized Urine Pending Result Diagram: 10/17/16 1140 10/17/16 1140 Imaging 09/29/16 CT scan head and CTA head and neck images reviewed by the undersigned. Agree with findings as noted below: Head CT 10/17/16 1122 Signed Impressions: Service Date/Time: Monday, October 17, 2016 12:04 - CONCLUSION: Questionable subarachnoid hemorrhage with some prominence of the anterior communicating artery. CTA would be helpful. Alin Child MD Chest X-Ray 10/17/16 1122 Signed Impressions: Service Date/Time: Monday, October 17, 2016 11:39 - CONCLUSION: 1. Endotracheal tube in the right mainstem bronchus. This Should be retracted 4 cm Les Hairston MD Neck CTA 10/17/16 0000 Signed Impressions: Service Date/Time: Monday, October 17, 2016 14:01 - CONCLUSION: Normal examination. Dense infiltrate throughout the lungs Alin Child MD Head CTA 10/17/16 0000 Signed Impressions: Service Date/Time: Monday, October 17, 2016 14:01 - CONCLUSION: Normal examination. No evidence of aneurysms identified. Specifically the anterior communicating artery region is unremarkable. Alin Child MD Assessment and Plan Assessment and Plan Impression: 1. Question of minimal subarachnoid hemorrhage and patient unresponsive, history of IV drug abuse. CT scan findings suspicious for early changes from hypoxic encephalopathy. Plan: Patient has been admitted to intensive surgical care unit for close observation neurologic checks. Maintaining ventilatory support Correction of electrolyte abnormalities per media/instructional designer Plan follow-up CT scan head in the a.m. depending on clinical course. Non-chemical DVT prophylaxis at present Corby Riley MD Oct 17, 2016 18:44
[2016-10-17] MEDS ORDERED: SODIUM BICARBONATE IV SCH ×2 (19:00)
[2016-10-17] MEDS ORDERED: WATER IV SCH ×2 (19:00)
[2016-10-17] MEDS ORDERED: DEXTROSE 5% IV SCH ×2 (19:00)
--- NOTE | 2016-10-17 19:01 | EC ---
Study Study Date:10/17/2016 STUDY CONCLUSIONS SUMMARY - Left ventricle: The cavity size was normal. Wall thickness was normal. Systolic function was severely reduced. The estimated ejection fraction was 15%, in the range of 10% to 20%. Diffuse hypokinesis. - Aortic valve: Valve area: 2.63cm^2 (Vmax). - Mitral valve: Mild to moderate regurgitation. Impressions: No evidence of endocarditis. If LV function is below 40, please consider prescribing an ACEI or ARB or document rationale for non-use. PROCEDURE DATA STUDY STATUS: Elective. Procedure: Transthoracic echocardiography. Image quality was good. Scanning was performed from the parasternal, apical, and subcostal acoustic windows. Study completion: The patient tolerated the procedure well. Transthoracic echocardiography. M-mode, complete 2D, complete spectral Doppler, and color Doppler. Height: Height: 67in. Weight: Weight: 184.6lb. Body mass index: BMI: 29kg/m^2. Body surface area: BSA: 1.96m^2. Patient status: Inpatient. CARDIAC ANATOMY LEFT VENTRICLE: The cavity size was normal. Wall thickness was normal. Systolic function was severely reduced. The estimated ejection fraction was 15%, in the range of 10% to 20%. Diffuse hypokinesis. AORTIC VALVE: Trileaflet; normal thickness leaflets. Doppler: Transvalvular velocity was within the normal range. There was no stenosis. No regurgitation. Valve area: 2.63cm^2 (Vmax). Indexed valve area: 1.34cm^2/m^2 (Vmax). AORTA: Aortic root: The aortic root was normal in size. MITRAL VALVE: Structurally normal valve. Doppler: Transvalvular velocity was within the normal range. There was no evidence for stenosis. Mild to moderate regurgitation. LEFT ATRIUM: The atrium was normal in size. RIGHT VENTRICLE: The cavity size was normal. Wall thickness was normal. PULMONIC VALVE: Doppler: Transvalvular velocity was within the normal range. There was no evidence for stenosis. No regurgitation. TRICUSPID VALVE: Structurally normal valve. Doppler: Transvalvular velocity was within the normal range. No regurgitation. PULMONARY ARTERY: The main pulmonary artery was normal-sized. Systolic pressure was within the normal range. RIGHT ATRIUM: The atrium was normal in size. PERICARDIUM: There was no pericardial effusion. SYSTEMIC VEINS: Inferior vena cava: The vessel was normal in size. Patient weight: 184.6lb _Ejection fraction:_ 65-75% _Fractional shortening:_ 32% up to 5Kg 5-11.5Kg 11.6-22.9Kg 23-45Kg 45-57Kg Aortic Root 7-13 <17 13-22 17-27 17-27 LA diam 6-13 <23 24-38 33-47 37-40 RVID 10-17 7-15 7-15 7-18 8-17 LVIDd 12-22 <32 24-38 33-47 37-40 LVPW 2-4 3-6 5-7 6-8 7-8 IVS 2-4 3-6 5-7 6-8 7-8 BASIC MEASUREMENTS ADULT NORMAL Left ventricle LV internal dimension, ED, chordal 51.2 mm 43-52 level, PLAX LV internal dimension, ES, chordal *41.4 mm 23-38 level, PLAX Fractional shortening, chordal level, *19 % >29 PLAX LV posterior wall thickness, ED 7.93 mm IVS/LVPW ratio, ED 0.93 <1.3 Volume, ED, MOD, 1-plane 102 ml Volume, ES, MOD, 1-plane 86 ml Ejection fraction, MOD, 1-plane 16 % Stroke volume, MOD, 1-plane 16 ml Volume index, ED, MOD, 1-plane 52 ml/m^2 Volume index, ES, MOD, 1-plane 44 ml/m^2 Stroke index, MOD, 1-plane 8.2 ml/m^2 Volume, ED, MOD, 2-plane 122 ml Volume, ES, MOD, 2-plane 107 ml Ejection fraction, MOD, 2-plane 12 % Stroke volume, MOD, 2-plane 15 ml Volume index, ED, MOD, 2-plane 62 ml/m^2 Volume index, ES, MOD, 2-plane 55 ml/m^2 Stroke index, MOD, 2-plane 7.7 ml/m^2 Ventricular septum Septal thickness, ED 7.41 mm Aortic valve Leaflet separation 18 mm 15-26 BASIC MEASUREMENTS ADULT NORMAL Aortic valve Leaflet separation 18 mm 15-26 Aorta Root diameter, ED 20 mm 20-37 Left atrium Anterior-posterior dimension, ES 33 mm 19-40 Anterior-posterior dimension index, ES 1.68 cm/m^2 <2.2 LA/aortic root ratio 1.65 DOPPLER MEASUREMENTS ADULT NORMAL Main pulmonary artery Pressure, S 23 mm Hg =30 Aortic valve Peak velocity, S 83 cm/s Valve area, Vmax 2.63 cm^2 Valve area index, Vmax 1.34 cm^2/m^2 Mitral valve Peak E-wave velocity 65.2 cm/s Peak A-wave velocity 51.3 cm/s Deceleration time *56 ms 150-230 Peak E/A ratio 1.3 Maximal regurgitant velocity 257 cm/s Tricuspid valve Regurgitant peak velocity 224 cm/s Peak RV-RA gradient, S 20 mm Hg Maximal regurgitant velocity 224 cm/s Systemic veins Estimated CVP 5 mm Hg Right ventricle RV pressure, S 25 mm Hg <30 Pulmonic valve Peak velocity, S 78.7 cm/s LEGEND: Mean values are shown as u=mean value. Asterisk (*) dominique values outside specified normal range. Amended Grace Nichols [id number]
[2016-10-17 19:14] LABS: ACETAMINOPHEN 4.3 MCG/ML (10.0-30.0); MAGNESIUM 2.3 MG/DL (1.5-2.5)
[2016-10-17] MEDS: SODIUM BICARBONATE 8.4% INJ 150 MEQ in DEXTROSE 5% IN WATE 1000ML INJ 850 ML IV SCH ×2 (19:21)
[2016-10-17] MEDS: RESP: ALBUTEROL 2.5 MG/IPRATROPIUM 0.5 MG NEB (SCH) INH (19:25)
[2016-10-17] MEDS: CHLORHEXIDINE 0.12% (ORAL KIT) 15 ML CUP MT SCH (20:00)
[2016-10-17] MEDS ORDERED: DOBUTamine PREMIX DRIP 250 ML IV SCH (20:23)
[2016-10-17] MEDS: SODIUM CHLORIDE 0.9% FLUSH 5 ML FLUSH IV FLUSH SCH (21:00)
[2016-10-17] MEDS: levETIRAcetam INJ 500 MG in SODIUM CHLORIDE 0.9% INJ 100 ML IV SCH (21:00)
--- NOTE | 2016-10-17 22:11 | PD.PROCEDR ---
Procedure Note Procedure ARTERIAL LINE (A-Line) PLACEMENT Date: 10/17 Time: <__183__> Indication: Hemodynamic monitoring A time-out was completed verifying correct patient, procedure, site, positioning , and special equipment if applicable. Allens test was performed to ensure adequate perfusion. The patients <right axilla was prepped and draped in sterile fashion. 1% Lidocaine was used to anesthetize the area. A <18G/20G> Arrow arterial line was introduced into the axillary artery. The catheter was threaded over the guide wire and the needle was removed with appropriate pulsatile blood return. The catheter was then sutured in place to the skin and a sterile dressing applied. Perfusion to the extremity distal to the point of catheter insertion was checked and found to be adequate. <Attending/Resident> was present for the entire procedure. Estimated Blood Loss: 2ml The patient tolerated the procedure well and there were no complications. Marlon Chau MD Oct 17, 2016 22:11
[2016-10-17] MEDS ORDERED: EPINEPHrine (1:1000) INJ 2 MG in DEXTROSE 5% IN WATER INJ 248 ML IV SCH ×2 (22:30)
[2016-10-18] VITALS (19 sets, daily range): BP systolic 82–126; BP diastolic 66–84; PULSE 98–162; RESP 14–40; TEMP 98.2–104.4; O2SAT 94–100
[2016-10-18] MEDS: SODIUM BICARBONATE 8.4% INJ 150 MEQ in DEXTROSE 5% IN WATE 1000ML INJ 850 ML IV SCH ×8 (00:55→20:07)
[2016-10-18] MEDS: AZTREONAM 2,000 MG/NS 100 ML IV SCH ×2 (00:55)
[2016-10-18] MEDS ORDERED: fentaNYL 2,500 MCG/NS 250 ML IV SCH (01:00)
[2016-10-18] MEDS: metroNIDAZOLE 500 MG INJ 100 ML IV SCH ×3 (01:00→17:10)
[2016-10-18] MEDS ORDERED: LORazepam 2 MG/ML VIAL ONE (01:25)
[2016-10-18 01:27] LABS: BLOOD GAS BASE EXCESS -11.1 mmol/L (-2-2); BLOOD GAS CARBOXYHEMOGLOBIN 0.9 % (0-4); BLOOD GAS HCO3 12 mmol/L (22-26); BLOOD GAS METHEMOGLOBIN 0.9 % (0-2); BLOOD GAS O2 HGB SATURATION 98 % (90-100); BLOOD GAS OXYGEN CONTENT 18.6 Vol % (12.0-20.0); BLOOD GAS PCO2 17 mmHg (38-42); BLOOD GAS PO2 308 mmHg (61-120); TEMP CORR TO 98.6
[2016-10-18 01:29] LABS: CRITICAL VALUE YES; OXYGEN DEVICE VENTILATOR
[2016-10-18 01:30] LABS: DRAW SITE ART LINE; FIO2 100 %; STAT NO
[2016-10-18] MEDS ORDERED: LORazepam 2 MG/ML VIAL IV PUSH ONE (01:30)
[2016-10-18] MEDS ORDERED: ALBUMIN HUMAN 5% 25 GM/500 ML BOTTLE IV ONE (01:45)
[2016-10-18] MEDS ORDERED: SODIUM CHLOR 0.9% 1000 ML INJ 1,000 ML IV ONE ×2 (01:45)
[2016-10-18] MEDS ORDERED: MIDAZOLAM 100 MG/ML INJ 100 ML IV SCH (01:45)
[2016-10-18] MEDS: RESP: ALBUTEROL 2.5 MG/IPRATROPIUM 0.5 MG NEB (SCH) INH ×4 (03:12→19:50)
[2016-10-18] MEDS: SODIUM CHLOR 0.9% 1000 ML INJ 1,000 ML IV SCH ×2 (03:37→15:50)
[2016-10-18] MEDS: DOCUSATE SODIUM 100 MG/10 ML UDC G-TUBE SCH ×2 (03:38→16:00)
--- NOTE | 2016-10-18 03:43 | RADRPT ---
EXAM DATE/TIME: 10/18/2016 02:36 [facility] COMPARISON: CHEST SINGLE AP, October 17, 2016, 13:43. INDICATIONS : Respiratory disease MEDICAL HISTORY : Siezures SURGICAL HISTORY : None. ENCOUNTER: Subsequent ACUITY: 3 days PAIN SCORE: Non-responsive. LOCATION: Bilateral chest FINDINGS: Patchy consolidation of both lungs decreasing in the interim, now mild. The consolidation is fairly g eneralized but with a slight basilar predominance and left more so than right. There slight nodularit y in the left mid lung and followup to complete resolution recommended. No pleural effusion. No pneumothorax. Heart size stable, upper limits of normal. Endotracheal tube tip is about 4 cm above the rosangela. There is a nasogastric tube coursing into the s tomach. CONCLUSION: Decreasing bilateral airspace opacities. Please see above. Cornel Heath MD on October 18, 2016 at 3:39 Board Certified Radiologist. This report was verified electronically.
[2016-10-18] MEDS: CHLORHEXIDINE GLUCONATE 2 % 1 PACK (2 CLOTHS) TOP SCH (04:00)
[2016-10-18 05:23] LABS: AUTOMATED NEUTROPHIL # 11.9 TH/MM3 (1.8-7.7); BASOPHIL % 0.2 % (0.0-2.0); HEMATOCRIT 33.8 % (35.0-46.0); HEMO FLAGS DIFF FINAL; LYMPHOCYTE # 1.9 TH/MM3 (1.0-4.8); MEAN CELL VOLUME 80.5 FL (80.0-100.0); MEAN CORPUSCULAR HEMOGLOBIN 26.8 PG (27.0-34.0); MEAN CORPUSCULAR HGB CONC 33.3 % (32.0-36.0); MONO % 5.8 % (0.0-8.0); PLATELET COUNT 122 TH/MM3 (150-450); RED CELL DISTRIBUTION WIDTH 16.4 % (11.6-17.2); WHITE BLOOD COUNT 14.7 TH/MM3 (4.0-11.0)
[2016-10-18 05:42] LABS: APTT (PATIENT) 28.1 SEC (24.3-30.1); INTERNATIONAL NORMALIZED RATIO 1.3 RATIO
[2016-10-18] MEDS: INSULIN ASPART SUPPLEMENTAL SCALE SQ SCH ×2 (06:56→20:12)
[2016-10-18] MEDS ORDERED: TERBUTALINE INJ 1 MG/ML AMP SQ PRN (07:15)
[2016-10-18 07:38] LABS: BICARBONATE 21.7 MEQ/L (21.0-32.0); MAGNESIUM 1.5 MG/DL (1.5-2.5); POTASSIUM 3.3 MEQ/L (3.5-5.1); TOTAL BILIRUBIN ADULT 0.5 MG/DL (0.2-1.0)
[2016-10-18 07:41] LABS: CALCIUM-PROTEIN CORRECTED 7.3 MG/DL (8.5-10.1)
[2016-10-18] MEDS: CHLORHEXIDINE 0.12% (ORAL KIT) 15 ML CUP MT SCH ×2 (08:00→20:00)
[2016-10-18] MEDS ORDERED: CALCIUM GLUCONATE INJ 2 GM in DEXTROSE 5% IN WATER 100ML INJ 100 ML IV ONE ×2 (08:00)
[2016-10-18] MEDS ORDERED: EPINEPHrine HCL (1:10,000) 1 MG/10 ML SYRINGE ONE (08:03)
[2016-10-18] MEDS ORDERED: LIDOCAINE HCL 2% 100 MG/5 ML SYRINGE ONE (08:04)
[2016-10-18] MEDS ORDERED: ATROPINE SULFATE 1 MG/10 ML SYRINGE ONE (08:04)
[2016-10-18 08:18] LABS: BLOOD GAS BASE EXCESS -2.9 mmol/L (-2-2); BLOOD GAS CARBOXYHEMOGLOBIN 1.1 % (0-4); BLOOD GAS HCO3 19 mmol/L (22-26); BLOOD GAS METHEMOGLOBIN 0.9 % (0-2); BLOOD GAS O2 HGB SATURATION 97 % (90-100); BLOOD GAS OXYGEN CONTENT 15.6 Vol % (12.0-20.0); BLOOD GAS PCO2 22 mmHg (38-42); BLOOD GAS PO2 140 mmHg (61-120); BLOOD GAS TOTAL HGB 11.2 G/DL (12.0-16.0); TEMP CORR TO 98.6
[2016-10-18 08:19] LABS: CRITICAL VALUE YES; DRAW SITE ALINE; FIO2 50 %; OXYGEN DEVICE VENTILATOR; VENT SETTINGS PC/AC
--- NOTE | 2016-10-18 08:58 | HHI.CCPN ---
Subjective Remarks/Hospital Course This is a 36-year-old female brought in by EMS after sustaining a PE arrest at home. Per report by bystanders at the scene the patient is an IV drug user, and had been utilizing IV Dilaudid and additionally [place] Xanax. She had a 90 day supply of Xanax filled 3 days ago and all but10 pills are missing. Patient was coded in the field for a PEA arrest, she received bicarbonate 3 ampules of epinephrine, 2 mg of Narcan was intubated with an ET tube and had ROSC prior to arrival. Upon obtaining history from the , patient was found lying supine in bed, with a syringe lying on her chest, needle levi in her arm. The allowed her to sleep for a while, but when she did not respond he contacted EMS. Upon arrival of EMS chest compressions, ACLS were initiated. Upon arrival to the ED, imaging and laboratory evaluation was performed, initial drug screen negative, CT scan revealed possible subarachnoid hemorrhage. Initial evaluation revealed pupils nonresponsive, patient unresponsive to deep pain. Neurosurgery was contacted. CT angio of brain performed results pending. Critical care medicine was contacted for evaluation and management. Subjective 10/18 Last evening upon arrival to [facility], the patient went into PEA arrest with ROSC , epinephrine and sodium bicarbonate infusions initiated. Echo obtained previously revealed EF 10-20%. Dobutamine infusion added during the night. EEG was obtained in the ED which showed severe encephalopathic state. Neurology consulted, repeat CT brain pending. Expanded urine tox screen results pending. Objective Vital Signs Date Time Temp Pulse Resp B/P Pulse Ox O2 Delivery O2 Flow Rate FiO2 10/18/16 08:04 100 50 10/18/16 06:00 160 10/18/16 04:00 99.4 40 107/79 10/17/16 15:57 Ventilator Intake and Output 10/17/16 10/17/16 10/18/16 08:00 16:00 00:00 Intake Total 95 ml 2045 ml Output Total 750 ml Balance 95 ml 1295 ml Result Diagram: 10/18/16 0505 10/18/16 0650 Other Results Laboratory Tests Test 10/17/16 10/17/16 10/17/16 10/18/16 11:43 17:13 18:11 01:12 Blood Gas Puncture Site RT RADIAL RT BRACHIAL CENTRAL LINE ART LINE Blood Gas Patient Temperature 98.6 98.6 98.6 98.6 Blood Gas HCO3 16 mmol/L 13 mmol/L 12 mmol/L (22-26) (22-26) (22-26) Blood Gas Base Excess -10.4 mmol/L -12.8 mmol/L -11.1 mmol/L (-2-2) (-2-2) (-2-2) Blood Gas Oxygen Saturation 83 % (90-100) 97 % (90-100) 98 % (90-100) Arterial Blood pH 7.25 7.23 7.47 (7.380-7.420) (7.380-7.420) (7.380-7.420) Arterial Blood Partial 37 mmHg (38-42) 33 mmHg (38-42) 17 mmHg (38-42) Pressure CO2 Arterial Blood Partial 67 mmHG 165 mmHg 308 mmHg Pressure O2 (61-120) (61-120) (61-120) Arterial Blood Oxygen Content 16.7 Vol % 22.1 Vol % 18.6 Vol % (12.0-20.0) (12.0-20.0) (12.0-20.0) Arterial Blood 3.7 % (0-4) 0.7 % (0-4) 0.9 % (0-4) Carboxyhemoglobin Arterial Blood Methemoglobin 2.2 % (0-2) 0.9 % (0-2) 0.9 % (0-2) Blood Gas Hemoglobin 14.3 G/DL 16.0 G/DL 13.0 G/DL (12.0-16.0) (12.0-16.0) (12.0-16.0) Oxygen Delivery Device VENTILATOR VENTILATOR AMBU BAG VENTILATOR Blood Gas Ventilator Setting AC/20/500/+10 COMMENT Blood Gas Inspired Oxygen 60 % 90 % 100 % 100 % Venous Blood pH 6.94 (7.360-7.400) Venous Blood Partial Pressure 63 mmHg (44-48) CO2 Venous Blood Partial Pressure 18 mmHg (35-40) O2 Venous Blood HCO3 13 mmol/L (22-26) Venous Blood Oxygen Saturation 9 % (70-76) Venous Blood Oxygen Content 1.7 Vol % (9.0-17.0) Venous Blood Base Excess -17.1 mmol/L (-2-2) Blood Gas Liter Flow 15 L/M Test 10/18/16 08:15 Blood Gas Puncture Site MARTINA Blood Gas Patient Temperature 98.6 Blood Gas HCO3 19 mmol/L (22-26) Blood Gas Base Excess -2.9 mmol/L (-2-2) Blood Gas Oxygen Saturation 97 % (90-100) Arterial Blood pH 7.56 (7.380-7.420) Arterial Blood Partial 22 mmHg (38-42) Pressure CO2 Arterial Blood Partial 140 mmHg Pressure O2 (61-120) Arterial Blood Oxygen Content 15.6 Vol % (12.0-20.0) Arterial Blood 1.1 % (0-4) Carboxyhemoglobin Arterial Blood Methemoglobin 0.9 % (0-2) Blood Gas Hemoglobin 11.2 G/DL (12.0-16.0) Oxygen Delivery Device VENTILATOR Blood Gas Ventilator Setting PC/AC Blood Gas Inspired Oxygen 50 % Imaging Last Impressions Head CT 10/17/16 1122 Signed Impressions: Service Date/Time: Monday, October 17, 2016 12:04 - CONCLUSION: Questionable subarachnoid hemorrhage with some prominence of the anterior communicating artery. CTA would be helpful. Alin Child MD Chest X-Ray 10/17/16 1122 Signed Impressions: Service Date/Time: Monday, October 17, 2016 11:39 - CONCLUSION: 1. Endotracheal tube in the right mainstem bronchus. This Should be retracted 4 cm Les Hairston MD Neck CTA 10/17/16 0000 Signed Impressions: Service Date/Time: Monday, October 17, 2016 14:01 - CONCLUSION: Normal examination. Dense infiltrate throughout the lungs Alin Child MD Head CTA 10/17/16 0000 Signed Impressions: Service Date/Time: Monday, October 17, 2016 14:01 - CONCLUSION: Normal examination. No evidence of aneurysms identified. Specifically the anterior communicating artery region is unremarkable. Alin Child MD Objective Remarks GENERAL: Critically ill-appearing obese female intubated and sedated SKIN: Warm and dry. HEAD: Atraumatic. Normocephalic. EYES: Pupils equal and round. No scleral icterus. No injection or drainage. ENT: No nasal bleeding or discharge. Mucous membranes pink and moist. Oral tracheal intubation NECK: Trachea midline. No JVD. CARDIOVASCULAR: Sinus tachycardia, regular rhythm. S1,S2 RESPIRATORY: Mechanical ventilation, patient overbreathing the ventilator. Clear to auscultation. Breath sounds equal bilaterally. GASTROINTESTINAL: Abdomen soft, protuberant non-tender, nondistended. No guarding. MUSCULOSKELETAL: Extremities without clubbing, cyanosis, or edema. No obvious deformities. NEUROLOGICAL: Pupils nonreactive. Patient unresponsive, no corneal reflex, no response to deep pain. Procedures Repeat CT brain pending Urinary Catheter: Yes Anthony insert reason: Measure Accurate Output Date of Insertion: Oct 17, 2016 Vascular Central Line Catheter: Yes Assessment to: Continue Date of Insertion: Oct 17, 2016 Line: Central Venous Catheter Side: Right Location: Femoral Reason for Continuation Vasoactive medication administration A/P Assessment and Plan This is a 36-year-old female, found unresponsive by her for unknown period of time. The patient was found with syringe and needle lying on chest, unknown medication administered. The patient was found by EMS in PEA arrest, GCS upon presentation 3, had begun CPR prior to EMS arrival. Upon intubation the patient was noted to have copious amounts of fluids/ secretion notably indicative of probable aspiration. Plan by systems: Neurologic: Toxic, metabolic encephalopathy Anoxic encephalopathy? Subarachnoid hemorrhage History of IV drug abuse Seizure disorder Anxiety disorder Hyperammonemia Drug overdose Myoclonus Neuro -Initial exam upon presentation to the ED GCS of 3T, patient was placed on propofol infusion for CT angio, now discontinued. The patient remains GCS 3T .pupils nonreactive, no response to deep pain, noted fine tremors supraorbital and temporal muscular regions. Per family patient has a history of seizure disorder, previously on Tegretol. The patient was found down for unknown period of time in PEA arrest. -Continued neurological exam per ICU protocol-initial exam no corneal reflex, eyelid reflex, pupils 3 mm no reactivity, no response to deep pain, on no sedation. -Neurosurgery consulted-Dr. Riley, follow-up recommendations -Consult Neurology- F/U recommendations -Seizure prophylaxis Keppra 500mg BID, Versed and fentanyl infusions discontinued -CT brain 10/17 possible subarachnoid hemorrhage -Repeat CT brain this a.m. -F/U ammonia level in a.m. -Tegretol level subtherapeutic <0.5, family reported that patient was on Tegretol for seizure disorder - EEG 10/17-minimal electrographic activity consistent with severe encephalopathic state -Follow-up expanded urine drug toxicity screen -Obtain records from family/ regarding prescription medications- reported medications -Xanax, Tegretol Respiratory: Respiratory arrest Pulmonary edema ARDS Probable aspiration -Mechanical vent settings -PC 24, PEEP of 12, FIO2 .50, Rate [id number], decreased to 14, patient overbreathing vent rate mid 30s. PEEP decreased to 8 -CXR improvement with decreasing opacities -ABG 7.56/22/140/18/-2.9 -Wean FiO2 to less than 50%, as soon as clinically possible -Bronchodilators every 6 hours scheduled every 2 hours when necessary Cardiovascular: PEA arrest x2 -Maintain MAP 65mmHg, patient previously on epinephrine, dc'd during the night, and dobutamine overnight, heart rate 160s, will attempt to wean off -Begin Levophed -EKG sinus tach -Echo-EF 10-20%, Diffuse hypokinesis, systolic function severely reduced. - Renal: - Maintain Anthony -Monitor hourly urine output -- Strict I/Os FEN/GI: Hypokalemia Metabolic acidosis -Normal saline at 84 cc an hour -Monitor CMP, will repeat follow-up results -Sodium bicarbonate infusion at 150/hr, will decrease to 100cc/hr -Replete electrolytes per ICU protocol -Lactate 11.7--> 5.2 today -Magnesium, Phos repletion -Elevated liver enzymes-monitor LFT's -Tylenol level 4.3 -Hepatitis panel pending -F/U ammonia level Heme/ID: Lactic acidosis Leukocytosis Multilobular pneumonia -Begin cefepime azithromycin, and Flagyl (day #2) for probable aspiration -Monitor CBC, WBC 13.2 -F/u lactate levels Endocrine: Hyperglycemia of critical illness -Glucose monitoring per ICU protocol low dose regimen -- SSI Prophylaxis: GI Prophylaxis Protonix IV DVT Prophylaxis -- SCDs No pharmacological DVT prophylaxis secondary to subarachnoid hemorrhage Lines: Right triple lumen femoral line, Dr. Sheppard (day #2),Right axillary (day 1) peripheral IV's, Dispo: Discussed with family last evening after PEA arrest, spoke with , and patient's parents updated them on her medical status. The family requests aggressive measures continue to be instituted. my billing statement This patient remains critically ill with one or more organ systems which are or may become a threat to life. I have spent in excess of 55 minutes discontinuously in the care and management of this patient. This time is exclusive of procedures, and includes, but is not limited to, evaluation of the patient, review of the medical record, discussions with family, consultants, nursing staff, or respiratory therapy, and documentation in the medical record. Physician Briseida Hinojosa MD Oct 18, 2016 08:58
[2016-10-18] MEDS: LACTULOSE SYRUP 20 GM/30 ML CUP PO SCH ×4 (09:00→20:13)
[2016-10-18] MEDS: ARTIFICIAL TEARS OPTH SOLN 15 ML BTL EACH EYE SCH ×2 (09:00→18:00)
[2016-10-18] MEDS: SODIUM CHLORIDE 0.9% FLUSH 5 ML FLUSH IV FLUSH SCH ×2 (09:00→20:13)
[2016-10-18] MEDS: levETIRAcetam INJ 500 MG in SODIUM CHLORIDE 0.9% INJ 100 ML IV SCH ×2 (09:07→20:13)
[2016-10-18] MEDS: PANTOPRAZOLE SODIUM 40 MG VIAL IV SCH (09:07)
--- NOTE | 2016-10-18 10:11 | RADRPT ---
EXAM DATE/TIME: 10/18/2016 09:52 [facility] COMPARISON: CT BRAIN W/O CONTRAST, October 17, 2016, 12:04. CHEST SINGLE AP, October 17, 2016, 13:43. INDICATIONS : Follow up subarachnoid hemorrhage. RADIATION DOSE: 56.35 CTDIvol (mGy) MEDICAL HISTORY : Seizures. Drug abuse. SURGICAL HISTORY : None. ENCOUNTER: Subsequent ACUITY: 1 day PAIN SCALE: Non-responsive LOCATION: cranial TECHNIQUE: Multiple contiguous axial images were obtained of the head. Using automated exposure control and adj ustment of the mA and/or kV according to patient size, radiation dose was kept as low as reasonably a chievable to obtain optimal diagnostic quality images. FINDINGS: Comparison is October 17. Since the prior study low attenuation has developed in the caudate nucleus and globus pallidus bilaterally probably related to anoxic brain injury. There is diffuse brain swell ing and sulcal effacement. There is partial effacement of the basilar cisterns. Several areas of ques tionable subarachnoid hemorrhage remain present. No acute bony abnormalities. CONCLUSION: 1. Abnormal development of diffuse low-attenuation in the basal ganglia as above likely related to an oxic brain injury and infarction. There is also diffuse cerebral swelling with effacement of the sulc i and basilar cisterns as well as the ventricular system. This has worsened compared with October 17. Yuniel Melgoza MD on October 18, 2016 at 10:04 Board Certified Radiologist. This report was verified electronically.
[2016-10-18] MEDS ORDERED: ACETAMINOPHEN 650 MG/20.3 ML UDC PO PRN (10:45)
[2016-10-18] MEDS: PROPOFOL 1000 MG/100 ML INJ 100 ML IV SCH ×2 (11:22→14:39)
--- NOTE | 2016-10-18 11:56 | PD.CONS ---
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 failure with hypoxia Symptom Scale: (1) Encephalopathy Pertinent Non-Medical Issues Psychosocial:Lived at home with her . Also supported by her parents, a 10-year-old brother, multiple other extended family members. Currently unemployed. Spiritual: Family appreciative of ongoing stock preparer support. Legal:Unable to participate in decision-making. Does not appear she will regain ability to participate. Per [place] statutes her would be legal decision maker. Ethical issues impacting care: Important Contacts Jamar Cervantes [phone] Prognosis This patient status post PEA arrest 2. Unknown amount of downtime during first PEA arrest which was sustained at home. Current brain imaging indicative severe hypoxic injury. EEG indicative of severe encephalopathy. Requiring pressors. Poor neurological exam minimal reflexes. Poor prognosis for survival. . Code Status: Full Code Plan * Legal decision maker: Patient due to clinical condition is unable to participate. Does not appear likely she will be able to regain ability. Her would be legal decision maker per [place] statutes. * Goals: Met with patient , as well as father, other family members at length--review of conditions, limited treatment options at this point, poor prognosis. They seem to understand. Goals remain aggressive, they do not want to "give up" they do not wish to remove any life support or other treatments. * CODE STATUS: Full code. * SYMPTOMS: --Encephalopathy- severe anoxic brain injury, status post PEA arrest, poor neuro assessment. Nonresponsive, no sedation. not expected to survive. * Palliative care will continue to follow during hospital course as condition evolves, to assist patient/decision-maker with understanding of medical conditions, weighing benefits/burdens of treatment options, for clarification of goals of treatment. Additionally will assist with any symptoms of palliative concern Time Spent Total Floor Time (mins): 75 >50% Counseling/Coord of Care: Yes (d/w critical care, primary nurse, as well as translife family patient care coordinator) Thank you for the opportunity to participate in the care of Ms. Cervantes. Attestation To help prompt me to consider important information that might be impacting today's encounter and assessment, information from prior notes written by myself or my colleagues may have been "brought forward" into today's note. My signature on this note, however, is an attestation that I personally performed the exam, history, and/or decision-making noted today, and, unless otherwise indicated, the interactions with patient, family, and staff as well as the review of records all occurred today. I also attest that the listed assessment and stated plan reflect my best clinical judgment today based on the combination of historical information, prior notes, and today's exam/ interactions. When time spent is documented, it refers only to time spent today by the signer, or if indicated, combined time spent today by collaborating physician/nurse practitioner. Rosa Soni Oct 18, 2016 11:56
[2016-10-18 12:25] LABS: BLOOD GAS BASE EXCESS -0.9 mmol/L (-2-2); BLOOD GAS CARBOXYHEMOGLOBIN 1.1 % (0-4); BLOOD GAS HCO3 22 mmol/L (22-26); BLOOD GAS METHEMOGLOBIN 0.9 % (0-2); BLOOD GAS O2 HGB SATURATION 92 % (90-100); BLOOD GAS PCO2 26 mmHg (38-42); BLOOD GAS PO2 65 mmHg (61-120); BLOOD GAS TOTAL HGB 10.8 G/DL (12.0-16.0); TEMP CORR TO 98.6
[2016-10-18 12:26] LABS: CRITICAL VALUE YES; OXYGEN DEVICE VENTILATOR
[2016-10-18 12:27] LABS: DRAW SITE ART LINE; FIO2 50 %; VENT SETTINGS PC/AC
[2016-10-18 12:28] LABS: STAT NO
--- NOTE | 2016-10-18 15:44 | EKG ---
Date Performed: 10/17/2016 Time Performed: 11:26:36 PTAGE: 36 years EKG: SINUS TACHYCARDIA WITH SHORT VT INTERVAL, POSSIBLE ATRIAL FLUTTER ABNORMAL RHYTHM ECG DAHLIA DASILVA: DATA QUALITY MAY AFFECT INTERPRETATION NO PREVIOUS TRACING DOCTOR: Sofia Cantrell Interpretating Date/Time 10/18/2016 15:41:05
[2016-10-18] MEDS: AZITHROMYCIN INJ 500 MG in SODIUM CHLOR 0.9% 250 ML INJ 250 ML IV SCH (17:10)
[2016-10-18] MEDS: NOREPINEPHRINE-DEXTROSE DRIP 250 ML IV SCH ×2 (17:11→21:54)
--- NOTE | 2016-10-18 17:11 | MB ---
cc: JITENDRA GIL DATE OF CONSULTATION: 10/18/2016 REASON FOR CONSULTATION: Encephalopathy. HISTORY OF PRESENT ILLNESS Ms. Cervantes is a 36-year-old female who was found unresponsive at home by her . It is unclear as to how long she was down for. [facility] was summoned and she was found to be in cardiac arrest at home. She was coded in the field for a PEA arrest and was intubated. The patient has been intubated and has been unresponsive. No focal deficits or seizure activity reported. CURRENT MEDICATIONS: 1. Propofol. 2. Tylenol. 3. Protonix. 4. Norepinephrine. NEUROLOGIC EXAMINATION Blood pressure is 160/40, pulse is 160. At the present time she is not breathing spontaneously over the ventilator although she was earlier. Higher cortical functions, nonresponsive. Cranial nerves: The pupils are 4 millimeters, fixed and dilated, nonreactive. Extraocular movements are absent to doll's eye maneuver. There is no gag reflex. On motor exam, there is no spontaneous movement. No posturing, no withdrawal to noxious stimulation. Reflexes are trace bilaterally. CT of the brain shows diffuse cerebral edema. CT angiogram of the neck normal. CT angiogram of the brain was normal. EEG shows severely attenuated activity, very low amplitude with minimal activity present. No seizure activity is seen. LABORATORY DATA: The white count is 14,700, hemoglobin 11.8, hematocrit 33.8%, platelet count 122,000. PT is 14, INR is 1.3, APTT 28. Sodium is 144, potassium 3.3, chloride 111, BUN is 12, creatinine 1, GFR 63. Glucose 170. Ammonia 45. IMPRESSION: Severe anoxic encephalopathy. Given the absence of brainstem reflexes on her examination as well as the EEG findings with only minimal electrocortical activity, if any, and also the CT showing diffuse cerebral edema, she has had a severe anoxic injury. Prognosis is extremely poor. MD WHITNEY Navarro/HARRIS /4:20 PM /4:47 PM
[2016-10-18 19:16] LABS: ANION GAP 8 MEQ/L (5-15); BETA HCG QUANT LESS THAN 1 MIU/ML (0-5); BICARBONATE 27.8 MEQ/L (21.0-32.0); BLOOD UREA NITROGEN 11 MG/DL (7-18); CHLORIDE 107 MEQ/L (98-107); GLOMERULAR FILTRATION RATE 58 ML/MIN (>89); MAGNESIUM 1.6 MG/DL (1.5-2.5); POTASSIUM 4.1 MEQ/L (3.5-5.1); SODIUM (NA) 143 MEQ/L (136-145)
[2016-10-18 20:29] LABS: CALCIUM-PROTEIN CORRECTED 7.6 MG/DL (8.5-10.1)
--- NOTE | 2016-10-18 22:00 | HHI.NSPN ---
History Chief Complaint: intubated, unresponsive Interval History 36-year-old female history of IV drug use including IV dye allotted with recent use of Xanax found unresponsive after a questionable length of time at home with syringe across her chest. Patient's called EMS and patient coded for a PEA arrest. Initial CT scan with possible mild subarachnoid hemorrhage. Patient initially unresponsive to deep pain with no eye opening, pupils nonreactive. 10/18/16: Remains intubated, minimal IV sedation, unresponsive. Exam Results Vital Signs Date Time Temp Pulse Resp B/P Pulse Ox O2 Delivery O2 Flow Rate FiO2 10/18/16 20:00 98.2 112 14 112/84 100 10/18/16 19:42 50 10/17/16 15:57 Ventilator Intake and Output 10/17/16 10/17/16 10/18/16 08:00 16:00 00:00 Intake Total 95 ml 2045 ml Output Total 750 ml Balance 95 ml 1295 ml Physical Examination Intubated. On 10 mics propofol IV No spontaneous respirations over the event No eye opening to voice, deep pain, or spontaneous Does not respond to voice or follow commands Pupil 6 mm nonreactive Absent corneal and oculocephalic responses No response to deep pain all extremities Absent cough and gag response Ryan's response have some bilateral No ankle clonus Absent plantar responses Lab, Micro, Other Results 10/18/16 CT scan head images reviewed by the undersigned. Severe decreased attenuation in the bilateral basal ganglia with severe diffuse cerebral edema, effacement of the cisterns ventricular system. Chest X-Ray 10/18/16 0600 Signed Impressions: Service Date/Time: Tuesday, October 18, 2016 02:36 - CONCLUSION: Decreasing bilateral airspace opacities. Please see above. Cornel Heath MD Head CT 10/18/16 0000 Signed Impressions: Service Date/Time: Tuesday, October 18, 2016 09:52 - CONCLUSION: 1. Abnormal development of diffuse low-attenuation in the basal ganglia as above likely related to anoxic brain injury and infarction. There is also diffuse cerebral swelling with effacement of the sulci and basilar cisterns as well as the ventricular system. This has worsened compared with October 17. Yuniel Melgoza MD Laboratory Tests Test 10/18/16 10/18/16 10/18/16 10/18/16 01:12 05:05 06:50 08:15 Blood Gas Puncture Site ART LINE MARTINA Blood Gas Patient Temperature 98.6 98.6 Blood Gas HCO3 12 mmol/L 19 mmol/L Blood Gas Base Excess -11.1 mmol/L -2.9 mmol/L Blood Gas Oxygen Saturation 98 % 97 % Arterial Blood pH 7.47 7.56 Arterial Blood Partial 17 mmHg 22 mmHg Pressure CO2 Arterial Blood Partial 308 mmHg 140 mmHg Pressure O2 Arterial Blood Oxygen Content 18.6 Vol % 15.6 Vol % Arterial Blood 0.9 % 1.1 % Carboxyhemoglobin Arterial Blood Methemoglobin 0.9 % 0.9 % Blood Gas Hemoglobin 13.0 G/DL 11.2 G/DL Oxygen Delivery Device VENTILATOR VENTILATOR Blood Gas Ventilator Setting COMMENT PC/AC Blood Gas Inspired Oxygen 100 % 50 % White Blood Count 14.7 TH/MM3 Red Blood Count 4.20 MIL/MM3 Hemoglobin 11.3 GM/DL Hematocrit 33.8 % Mean Corpuscular Volume 80.5 FL Mean Corpuscular Hemoglobin 26.8 PG Mean Corpuscular Hemoglobin 33.3 % Concent Red Cell Distribution Width 16.4 % Platelet Count 122 TH/MM3 Mean Platelet Volume 10.2 FL Neutrophils (%) (Auto) 81.0 % Lymphocytes (%) (Auto) 13.0 % Monocytes (%) (Auto) 5.8 % Eosinophils (%) (Auto) 0.0 % Basophils (%) (Auto) 0.2 % Neutrophils # (Auto) 11.9 TH/MM3 Lymphocytes # (Auto) 1.9 TH/MM3 Monocytes # (Auto) 0.9 TH/MM3 Eosinophils # (Auto) 0.0 TH/MM3 Basophils # (Auto) 0.0 TH/MM3 CBC Comment DIFF FINAL Differential Comment Prothrombin Time 14.0 SEC Prothromb Time International 1.3 RATIO Ratio Activated Partial 28.1 SEC Thromboplast Time Lactic Acid Level 5.2 mmol/L Sodium Level 144 MEQ/L Potassium Level 3.3 MEQ/L Chloride Level 111 MEQ/L Carbon Dioxide Level 21.7 MEQ/L Anion Gap 11 MEQ/L Blood Urea Nitrogen 12 MG/DL Creatinine 1.00 MG/DL Estimat Glomerular Filtration 63 ML/MIN Rate Random Glucose 170 MG/DL Calcium Level 6.6 MG/DL Protein Corrected Calcium 7.3 MG/DL Phosphorus Level 0.3 MG/DL Magnesium Level 1.5 MG/DL Total Bilirubin 0.5 MG/DL Aspartate Amino Transf 133 U/L (AST/SGOT) Alanine Aminotransferase 82 U/L (ALT/SGPT) Alkaline Phosphatase 72 U/L Total Protein 5.6 GM/DL Albumin 3.0 GM/DL Test 10/18/16 10/18/16 10/18/16 10:15 12:20 18:30 Ammonia 45 MCMOL/L Blood Gas Puncture Site ART LINE Blood Gas Patient Temperature 98.6 Blood Gas HCO3 22 mmol/L Blood Gas Base Excess -0.9 mmol/L Blood Gas Oxygen Saturation 92 % Arterial Blood pH 7.53 Arterial Blood Partial 26 mmHg Pressure CO2 Arterial Blood Partial 65 mmHg Pressure O2 Arterial Blood Oxygen Content 14.0 Vol % Arterial Blood 1.1 % Carboxyhemoglobin Arterial Blood Methemoglobin 0.9 % Blood Gas Hemoglobin 10.8 G/DL Oxygen Delivery Device VENTILATOR Blood Gas Ventilator Setting PC/AC Blood Gas Inspired Oxygen 50 % Sodium Level 143 MEQ/L Potassium Level 4.1 MEQ/L Chloride Level 107 MEQ/L Carbon Dioxide Level 27.8 MEQ/L Anion Gap 8 MEQ/L Blood Urea Nitrogen 11 MG/DL Creatinine 1.08 MG/DL Estimat Glomerular Filtration 58 ML/MIN Rate Random Glucose 239 MG/DL Calcium Level 6.8 MG/DL Protein Corrected Calcium 7.6 MG/DL Phosphorus Level 2.6 MG/DL Magnesium Level 1.6 MG/DL Total Protein 5.6 GM/DL Human Chorionic Gonadotropin, LESS THAN 1 Quant MIU/ML Medical Decision Making Impression and Plan Impression: 1. The patient's history and clinical presentation, exam, and imaging studies are all consistent with severe anoxic encephalopathy. Presently no evidence of brain stem or cortical function on clinical exam. Plan: Patient discussed with nursing staff General I Farmworker and palliative care and neurology notes reviewed. Patient was severe anoxic encephalopathy. No realistic chance of meaningful recovery at this point. No evidence of brainstem or cortical function on present exam. Anticipate cervical blood flow study on 10/19/16. Corby Riley MD Oct 18, 2016 22:00
[2016-10-19] VITALS (19 sets, daily range): BP systolic 98–112; BP diastolic 64–83; PULSE 90–112; RESP 14; TEMP 96.6–98.4; O2SAT 83–100
[2016-10-19] MEDS: AZTREONAM 2,000 MG/NS 100 ML IV SCH ×6 (00:19→19:37)
[2016-10-19] MEDS: metroNIDAZOLE 500 MG INJ 100 ML IV SCH ×3 (00:19→19:38)
[2016-10-19] MEDS: RESP: ALBUTEROL 2.5 MG/IPRATROPIUM 0.5 MG NEB (SCH) INH ×3 (02:53→15:20)
[2016-10-19] MEDS: SODIUM CHLOR 0.9% 1000 ML INJ 1,000 ML IV SCH ×2 (03:45→15:40)
[2016-10-19] MEDS: CHLORHEXIDINE GLUCONATE 2 % 1 PACK (2 CLOTHS) TOP SCH (04:00)
[2016-10-19] MEDS: SODIUM BICARBONATE 8.4% INJ 150 MEQ in DEXTROSE 5% IN WATE 1000ML INJ 850 ML IV SCH ×6 (04:20→17:40)
[2016-10-19] MEDS: DOCUSATE SODIUM 100 MG/10 ML UDC G-TUBE SCH ×2 (04:36→16:00)
[2016-10-19] MEDS: NOREPINEPHRINE-DEXTROSE DRIP 250 ML IV SCH (04:36)
[2016-10-19 05:10] LABS: HEMATOCRIT 33.6 % (35.0-46.0); MEAN CELL VOLUME 81.9 FL (80.0-100.0); MEAN CORPUSCULAR HEMOGLOBIN 26.9 PG (27.0-34.0); MEAN CORPUSCULAR HGB CONC 32.9 % (32.0-36.0); PLATELET COUNT 102 TH/MM3 (150-450); RED CELL DISTRIBUTION WIDTH 16.9 % (11.6-17.2); REVIEW FLAG FINAL; WHITE BLOOD COUNT 15.1 TH/MM3 (4.0-11.0)
[2016-10-19 05:13] LABS: BLOOD GAS BASE EXCESS 7.6 mmol/L (-2-2); BLOOD GAS CARBOXYHEMOGLOBIN 1.1 % (0-4); BLOOD GAS HCO3 32 mmol/L (22-26); BLOOD GAS METHEMOGLOBIN 0.9 % (0-2); BLOOD GAS O2 HGB SATURATION 96 % (90-100); BLOOD GAS OXYGEN CONTENT 15.9 Vol % (12.0-20.0); BLOOD GAS PCO2 47 mmHg (38-42); BLOOD GAS PO2 117 mmHg (61-120); BLOOD GAS TOTAL HGB 11.6 G/DL (12.0-16.0); CRITICAL VALUE NO; OXYGEN DEVICE VENTILATOR; TEMP CORR TO 98.6
[2016-10-19 05:14] LABS: DRAW SITE ART LINE; FIO2 50 %; STAT NO
[2016-10-19 05:49] LABS: BICARBONATE 35.8 MEQ/L (21.0-32.0); CALCIUM-PROTEIN CORRECTED 7.9 MG/DL (8.5-10.1); POTASSIUM 3.5 MEQ/L (3.5-5.1); TOTAL BILIRUBIN ADULT 0.4 MG/DL (0.2-1.0)
--- NOTE | 2016-10-19 06:04 | RADRPT ---
EXAM DATE/TIME: 10/19/2016 04:55 [facility] COMPARISON: CHEST SINGLE AP, October 18, 2016, 2:36. INDICATIONS : Shortness of breath MEDICAL HISTORY : None. SURGICAL HISTORY : None. ENCOUNTER: Subsequent ACUITY: 4 - 6 days PAIN SCORE: Non-responsive. LOCATION: Bilateral chest FINDINGS: Persistent airspace disease in the left mid and lower lung, not significantly changed. Trace right ba se atelectasis the lung volumes are smaller than yesterday. No large effusion seen. No pneumothorax. Endotracheal tube tip is about 3 cm above the rosangela. There is a nasogastric tube coursing into the s tomach. CONCLUSION: Persistent left base pneumonia not significantly changed. Cornel Hetah MD on October 19, 2016 at 6:02 Board Certified Radiologist. This report was verified electronically.
[2016-10-19] MEDS: INSULIN ASPART SUPPLEMENTAL SCALE SQ SCH ×4 (06:14→21:00)
--- NOTE | 2016-10-19 07:32 | HHI.CCPN ---
Subjective Remarks/Hospital Course This is a 36-year-old female brought in by EMS after sustaining a PE arrest at home. Per report by bystanders at the scene the patient is an IV drug user, and had been utilizing IV Dilaudid and additionally [place] Xanax. She had a 90 day supply of Xanax filled 3 days ago and all but10 pills are missing. Patient was coded in the field for a PEA arrest, she received bicarbonate 3 ampules of epinephrine, 2 mg of Narcan was intubated with an ET tube and had ROSC prior to arrival. Upon obtaining history from the , patient was found lying supine in bed, with a syringe lying on her chest, needle levi in her arm. The allowed her to sleep for a while, but when she did not respond he contacted EMS. Upon arrival of EMS chest compressions, ACLS were initiated. Upon arrival to the ED, imaging and laboratory evaluation was performed, initial drug screen negative, CT scan revealed possible subarachnoid hemorrhage. Initial evaluation revealed pupils nonresponsive, patient unresponsive to deep pain. Neurosurgery was contacted. CT angio of brain performed results pending. Critical care medicine was contacted for evaluation and management. Subjective 10/18 Last evening upon arrival to [facility], the patient went into PEA arrest with ROSC , epinephrine and sodium bicarbonate infusions initiated. Echo obtained previously revealed EF 10-20%. Dobutamine infusion added during the night. EEG was obtained in the ED which showed severe encephalopathic state. Neurology consulted, repeat CT brain pending. Expanded urine tox screen results pending. 10/[address] scan revealed diffuse edema related to anoxic brain injury and infarction. Subsequent clinical exam revealed no brainstem or cortical function. Patient initially breathing over mechanical ventilation, now absent. Plan for cerebral blood flow study this a.m.. Objective Vital Signs Date Time Temp Pulse Resp B/P Pulse Ox O2 Delivery O2 Flow Rate FiO2 10/19/16 06:00 98 10/19/16 04:16 98 50 10/19/16 04:00 97.2 14 98/68 10/17/16 15:57 Ventilator Intake and Output 10/18/16 10/18/16 10/19/16 08:00 16:00 00:00 Intake Total 3470 ml 1672 ml 1736 ml Output Total 825 ml 350 ml 925 ml Balance 2645 ml 1322 ml 811 ml Result Diagram: 10/19/16 0455 10/19/16 0455 Other Results Laboratory Tests Test 10/18/16 10/18/16 10/19/16 08:15 12:20 04:50 Blood Gas Puncture Site MARTINA ART LINE ART LINE Blood Gas Patient Temperature 98.6 98.6 98.6 Blood Gas HCO3 19 mmol/L 22 mmol/L 32 mmol/L (22-26) (22-26) (22-26) Blood Gas Base Excess -2.9 mmol/L -0.9 mmol/L 7.6 mmol/L (-2-2) (-2-2) (-2-2) Blood Gas Oxygen Saturation 97 % (90-100) 92 % (90-100) 96 % (90-100) Arterial Blood pH 7.56 7.53 7.45 (7.380-7.420) (7.380-7.420) (7.380-7.420) Arterial Blood Partial 22 mmHg (38-42) 26 mmHg (38-42) 47 mmHg (38-42) Pressure CO2 Arterial Blood Partial 140 mmHg 65 mmHg 117 mmHg Pressure O2 (61-120) (61-120) (61-120) Arterial Blood Oxygen Content 15.6 Vol % 14.0 Vol % 15.9 Vol % (12.0-20.0) (12.0-20.0) (12.0-20.0) Arterial Blood 1.1 % (0-4) 1.1 % (0-4) 1.1 % (0-4) Carboxyhemoglobin Arterial Blood Methemoglobin 0.9 % (0-2) 0.9 % (0-2) 0.9 % (0-2) Blood Gas Hemoglobin 11.2 G/DL 10.8 G/DL 11.6 G/DL (12.0-16.0) (12.0-16.0) (12.0-16.0) Oxygen Delivery Device VENTILATOR VENTILATOR VENTILATOR Blood Gas Ventilator Setting PC/AC PC/AC COMMENT Blood Gas Inspired Oxygen 50 % 50 % 50 % Imaging Last 24 hours Impressions Chest X-Ray 10/19/16 0600 Signed Impressions: Service Date/Time: October 04:55 - CONCLUSION: Persistent left base pneumonia not significantly changed. Cornel Heath MD Last Impressions Head CT 10/17/16 1122 Signed Impressions: Service Date/Time: Monday, October 17, 2016 12:04 - CONCLUSION: Questionable subarachnoid hemorrhage with some prominence of the anterior communicating artery. CTA would be helpful. Alin Child MD Chest X-Ray 10/17/16 1122 Signed Impressions: Service Date/Time: Monday, October 17, 2016 11:39 - CONCLUSION: 1. Endotracheal tube in the right mainstem bronchus. This Should be retracted 4 cm Les Hairston MD Neck CTA 10/17/16 0000 Signed Impressions: Service Date/Time: Monday, October 17, 2016 14:01 - CONCLUSION: Normal examination. Dense infiltrate throughout the lungs Alin Child MD Head CTA 10/17/16 0000 Signed Impressions: Service Date/Time: Monday, October 17, 2016 14:01 - CONCLUSION: Normal examination. No evidence of aneurysms identified. Specifically the anterior communicating artery region is unremarkable. Alin Child MD Objective Remarks GENERAL: Critically ill-appearing obese female intubated . SKIN: Warm and dry. HEAD: Atraumatic. Normocephalic. EYES: Pupils equal and round. Pupils 4 mm fixed /dilated No scleral icterus. No injection or drainage. ENT: No nasal bleeding or discharge. Mucous membranes pink and moist. Oral tracheal intubation NECK: Trachea midline. No JVD. CARDIOVASCULAR: Sinus tachycardia, regular rhythm. S1,S2 RESPIRATORY: Mechanical ventilation.Clear to auscultation. Breath sounds equal bilaterally. GASTROINTESTINAL: Abdomen soft, protuberant non-tender, nondistended. No guarding. MUSCULOSKELETAL: Extremities without clubbing, cyanosis, slight edema in hands, and feet. No obvious deformities. NEUROLOGICAL: Patient unresponsive, absent reflexes. Procedures Repeat cerebral blood flow study pending Urinary Catheter: Yes Anthony insert reason: Measure Accurate Output Date of Insertion: Oct 17, 2016 Vascular Central Line Catheter: Yes Date of Insertion: Oct 17, 2016 Line: Central Venous Catheter Side: Right Location: Femoral A/P Assessment and Plan This is a 36-year-old female, found unresponsive by her for unknown period of time. The patient was found with syringe and needle lying on chest, unknown medication administered. The patient was found by EMS in PEA arrest, GCS upon presentation 3, had begun CPR prior to EMS arrival. Upon intubation the patient was noted to have copious amounts of fluids/ secretion notably indicative of probable aspiration. The patient has been unresponsive since admission, subsequent CT revealed anoxic brain injury and infarction. Plan by systems: Neurologic: Toxic, metabolic encephalopathy Anoxic encephalopathy? Subarachnoid hemorrhage History of IV drug abuse Seizure disorder Anxiety disorder Hyperammonemia Drug overdose Myoclonus Severe anoxic brain injury Neuro -Initial exam upon presentation to the ED GCS of 3T, patient was placed on propofol infusion for CT angio, now discontinued. The patient remains GCS 3T .pupils nonreactive, no response to deep pain, noted fine tremors supraorbital and temporal muscular regions. Per family patient has a history of seizure disorder, previously on Tegretol. The patient was found down for unknown period of time in PEA arrest. -Continued neurological exam per ICU protocol-initial exam no corneal reflex, eyelid reflex, pupils 3 mm no reactivity, no response to deep pain, on no sedation. -Neurosurgery -Dr. Riley following -Neurology- Dr. Cornejo following -Seizure prophylaxis Keppra 500mg BID -CT brain 10/17 possible subarachnoid hemorrhage -Repeat CT brain 10/18 anoxic brain injury and infarction -Ammonia level -27 -Tegretol level subtherapeutic <0.5, family reported that patient was on Tegretol for seizure disorder - EEG 10/17-minimal electrographic activity consistent with severe encephalopathic state -Obtain cerebral blood flow study Respiratory: Respiratory arrest Pulmonary edema-resolved Mild ARDS Aspiration pneumonia -Maintain O2 sat greater than 92%, FIO2 .50 -P/F ratio 234 -Vent settings AC/PC 20/14/10/0.5 -ABG 7.45/47/117/32/7.6 -Bronchodilators every 6 hours scheduled every 2 hours when necessary Cardiovascular: PEA arrest x 2 -Maintain MAP 65mmHg ,on Levophed infusion, maximum dose 12 mcgs -Echo-EF 10-20%, Diffuse hypokinesis, systolic function severely reduced Renal: - Maintain Anthony -Monitor hourly urine output -- Strict I/Os FEN/GI: Hypokalemia Metabolic acidosis -Normal saline at 84 cc an hour -Monitor CMP, will repeat follow-up results -Discontinue Sodium bicarbonate infusion -Replete electrolytes per ICU protocol -Lactate 2.1 -Magnesium, Phos repletion -Elevated liver enzymes-monitor LFT's -Tylenol level 4.3 -Hepatitis panel pending Heme/ID: Lactic acidosis-resolved Leukocytosis Multilobular pneumonia -Begin cefepime azithromycin, and Flagyl (day # 3) for probable aspiration -Monitor CBC, WBC 15 Endocrine: Hyperglycemia of critical illness -Glucose monitoring per ICU protocol, low dose regimen -- SSI Prophylaxis: GI Prophylaxis Protonix IV DVT Prophylaxis -- SCDs Lines: Right triple lumen femoral line, Dr. Sheppard (day #3),Right axillary (day 2) peripheral IV's, Dispo: Discussed with family (parents) updated them on her medical status. Splaying results from repeat CT additionally clinical exam, prognosis extremely poor with no meaningful recovery. Palliative medicine following. Plan for cerebral blood flow study this a.m. my billing statement This patient remains critically ill with one or more organ systems which are or may become a threat to life. I have spent in excess of 38 minutes discontinuously in the care and management of this patient. This time is exclusive of procedures, and includes, but is not limited to, evaluation of the patient, review of the medical record, discussions with family, consultants, nursing staff, or respiratory therapy, and documentation in the medical record. Physician Briseida Hinojosa MD Oct 19, 2016 07:32 discontinuously in the care and management of this patient. This time is exclusive of procedures, and includes, but is not limited to, evaluation of the patient, review of the medical record, discussions with family, consultants, nursing staff, or respiratory therapy, and documentation in the medical record. Briseida Jackson MD Oct 19, 2016 07:32
[2016-10-19] MEDS: CHLORHEXIDINE 0.12% (ORAL KIT) 15 ML CUP MT SCH ×2 (08:00→20:00)
[2016-10-19] MEDS ORDERED: CALCIUM GLUCONATE INJ 1 GM in SODIUM CHLORIDE 0.9% INJ 100 ML IV ONE (08:30)
[2016-10-19] MEDS: levETIRAcetam INJ 500 MG in SODIUM CHLORIDE 0.9% INJ 100 ML IV SCH (08:56)
[2016-10-19] MEDS: PANTOPRAZOLE SODIUM 40 MG VIAL IV SCH (08:57)
[2016-10-19] MEDS: SODIUM CHLORIDE 0.9% FLUSH 5 ML FLUSH IV FLUSH SCH ×2 (09:00→21:00)
[2016-10-19] MEDS: ARTIFICIAL TEARS OPTH SOLN 15 ML BTL EACH EYE SCH ×3 (09:00→18:00)
[2016-10-19] MEDS ORDERED: EPINEPHrine HCL (1:10,000) 1 MG/10 ML SYRINGE ONE (10:01)
[2016-10-19] MEDS ORDERED: LIDOCAINE HCL 2% 100 MG/5 ML SYRINGE ONE (10:01)
[2016-10-19] MEDS ORDERED: ATROPINE SULFATE 1 MG/10 ML SYRINGE ONE (10:01)
--- NOTE | 2016-10-19 11:10 | RADRPT ---
EXAM DATE/TIME: 10/19/2016 10:14 [facility] COMPARISON: CTA BRAIN W 3D RECON, October 17, 2016, 14:01. CT BRAIN W/O CONTRAST, October 18, 2016, 9:52. INDICATIONS : Cardiac arrest. Drug overdose. DOSE: 26.7 mCi Tc99m DTPA IV The diagnosis of brain is clinical and the results of this test should be taken in the content of clinical and electrocephalographic data. MEDICAL HISTORY : None SURGICAL HISTORY : None. ENCOUNTER: Initial ACUITY: 1 day PAIN SCALE: 0/10 LOCATION: Brain. TECHNIQUE: Anterior dynamic imaging as well as delayed static imaging. FINDINGS: Dynamic and blood pool imaging of the brain following radiotracer administration fails to reveal any visible brain activity. CONCLUSION: No visible brain activity identified. Jere Bright MD on October 19, 2016 at 10:58 Board Certified Radiologist. This report was verified electronically.
--- NOTE | 2016-10-19 17:31 | HHI.HCPN ---
Reason for visit a. To assist with evaluation and management of symptoms including: Encephalopathy b. To assist medical decision maker(s) with: better understanding of current medical conditions; weighing benefits/burdens of medical treatment options; making medical treatment decisions. Subjective/Interval History Patient seen and examined in ICU. No family at bedside. Discussed with nursing staff and Dr. Jackson. Patient went for brain flow study that revealed no visible brain activity. Awaiting clinical exam by order picker and neurology. Patient is not breathing over vent any longer. No cough, corneal, gag or withdrawal to noxious stimuli. Afebrile. BP 112/74 on Levophed 12. Off all sedation. WBC 15.1 , hemoglobin 11, platelets 102. Blood cultures gram positive rods and yeast. CXR persistent left base pneumonia. Later present when Dr. Jackson performed apnea test and clinical brain exam. Awaiting neurology exam. Per AFSHIN Caicedo Palliative care consult note completed 10/18/16: This 36-year-old female presented to the ED on 10/17/16 from home, via EMS after sustaining PEA arrest at home. Bystanders reported patient had known IV drug use and apparently had injected street dilaudid and was also taking [place] and Xanax. Did to have a 90 day supply of Xanax filled 3 days prior and all the 10 pills were missing at time of events. Patient underwent CPR in the field for arrest receiving bicarbonate, epinephrine, Narcan, was intubated in the field and did have ROSC prior to arrival. History otherwise limited. Unknown amount of total down time prior to initiation of CPR. * ED course:-At arrival pupils noted fixed and dilated. GCS 3. Did not respond to pain stimuli. EKG= sinus tach [address] changes. Initial pulses were thready however improved. ABG= acidosis. Initial core temperature noted to be 95, ED physician allowing permissive hypothermia given cardiac arrest. CXR negative acute process. Patient family reported to arrive, and according to her patient had recently relapsed into IV hydromorphone use he had left her alone while he went to the restroom and when he returned she was unconscious with the needle lying on her chest. He placed cool cloths on her forehead and called 911. He also reported patient with a known history of seizure disorder. Upon later assessment in the ED patient has some gag reflex. Otherwise unresponsive. * ----Later during ED course after CT scan patient with desaturation to 75% on 100% FiO2, noted to have frothy red sputum, repeat CXR= Josue and edema consistent with possible ARDS. ET tube retracted , reported to have been in right mainstem. CT head resulted as possible subarachnoid hemorrhage, neurosurgery consulted. On sedation with propofol. Repeat CTA head, neck pending. Admitted to ICU.Initial urine drug screen negative, repeat, expanded ordered. * CTA chest not done given findings of subarachnoid hemorrhage due to unable to anticoagulant if embolus found. 2-D echo ordered. Ammonia elevated 95, ordered for lactulose. Neurosurgery, neurology consulted and to follow. EEG ordered. Hepatitis panel pending, serial liver enzymes to follow. Initiated on antibiotics cefepime, azithromycin, Flagyl for presumed aspiration. * EEG= severely abnormal EEG with minimal electrographic activity identified consistent with severe encephalopathic state * 2-D echo= EF 15-1020 percent. Diffuse hypokinesis. No evidence of endocarditis. * 10/[address] findings suspicious for early changes from hypoxic encephalopathy as well as question of minimal SAH. Main pain supportive treatments plan for follow-up CT had in a.m. depending on clinical course. Later on 10/17 18 10 --> suffered PEA arrest, CPR initiated, with ROSC. Intensivists notes discussion with family. Patient now requiring dobutamine. Patient with no corneal reflex pupils nonreactive no response to deep pain no sedation. * 2/1repeat CT head= development of diffuse low-attenuation of basal ganglia is likely above related to anoxic brain injury and infarction. Also diffuse cerebral swelling with effacement of the sulci and basilar cisterns as well as the ventricular system. This is worsened compared to 10/17. CXR= decreasing bilateral airspace opacities. Palliative care consulted to assist with clarification of goals of treatment, patient felt to have severe hypoxic encephalopathy. Patient seen in room initially no family present. She is nonresponsive to my exam. Currently on propofol, Levophed, bicarbonate drips. Nursing to notify when family arrives. I did attempt to call Jamar, voicemail left. He later called me back and agreed to come to the hospital meet though he was not certain of the time. He sounded somewhat disoriented. He asked me a few times if the patient was , he sounded angry, I informed him that she was still in critical condition being maintained on life support and that I wanted to meet with him further to provide him in the other family members update on her conditions. Family/friend interactions I later came back to unit aunt, cousins at bedside. They reports parents and do not plan to come to hospital tonight. Spoke with aunt, Angélica requested she have parents and spouse return to hospital this evening. She spoke with father who reports he and his are unable to return to hospital this evening. 6:45pm: Dr. Jackson and I attempted via speaker phone to call spouse, Jamar Cervantes to notify of brain TOD 1840. Left message for him to return call to unit ANDREW to give medial update. No return call received. 6:55pm: Obtained phone number of father, Arvin aKt (Boo) from Angélica. Via speaker phone with Dr. Jackson and family present reviewed test results throughout the day, brain TOD 1840. He is appropriately tearful. He reports he is unable to come to [facility] this evening. He tells me he said his goodbyes last night. He does not plan to return this evening. He understands we are attempting to reach Jamar and have not been able to reach him. He appreciates the care we have provided his daughter and states "I knew she couldn 't survive this." He asks about autopsy, explained emergency medical service coordinator would need to determine this. 7:04pm Attempted to call Jamar again via my cell phone via speaker in the presence of nursing staff and Dr. Jackson, no answer. Angélica and her daughter remain at bedside. They will continue to try to call Jamar as he has not yet been informed of patient . Nursing staff aware. . Advance Directives Living Will: Never completed Health Care Surrogate: Never completed Durable Power of Director Of Strategic Sales: Never completed Advance Directive Specifics Significant change in goals: FULL CODE. Objective Vital Signs Date Time Temp Pulse Resp B/P Pulse Ox O2 Delivery O2 Flow Rate FiO2 10/19/16 16:00 98.4 107 14 105/64 100 10/19/16 16:00 107 10/19/16 15:21 96 50 10/19/16 14:00 108 10/19/16 12:22 100 50 10/19/16 12:00 112 10/19/16 12:00 97.5 112 14 112/74 94 10/19/16 10:00 100 100 10/19/16 10:00 110 10/19/16 08:00 112 10/19/16 08:00 96.6 112 14 106/72 96 10/19/16 07:50 95 50 10/19/16 06:00 98 10/19/16 04:16 98 50 10/19/16 04:00 97.2 98 14 98/68 98 10/19/16 04:00 98 10/19/16 02:00 98 10/19/16 00:22 97 50 10/19/16 00:00 92 10/19/16 00:00 97.5 92 14 111/83 98 10/18/16 22:00 98 10/18/16 20:00 98.2 112 14 112/84 100 10/18/16 20:00 112 10/18/16 19:42 100 50 10/18/16 18:00 162 Intake & Output 10/19/16 10/19/16 07:00 19:00 Intake Total 3319 ml 1705 ml Output Total 4600 ml 200 ml Balance -1281 ml 1505 ml Intake IV Total 3319 ml 1705 ml Output Urine Total 4550 ml 200 ml Gastric Drainage Total 50 ml # Bowel Movements 0 0 Physical Exam CONSTITUTIONAL/GENERAL: This is an adequately nourished patient, on mechanical vent TUBES/LINES/DRAINS: Right femoral central line, right arterial line upper arm, peripheral IV left hand, peripheral IV right hand, Anthony catheter, SCDs, ET tube , OG tube SKIN: No jaundice, rashes, or lesions. No wounds seen anteriorly. Skin temperature appropriate. EYES: Pupils 4 mm, no reaction to light. ENT: . Nose without bleeding or purulent drainage. Unable to visualize oropharynx due to ET tube. CARDIOVASCULAR: Regular rate and rhythm without murmurs.hypotensive via bedside monitor 80s90s. No JVD. Peripheral pulses symmetric. RESPIRATORY/CHEST: Symmetric, unlabored respirations via mechanical vent,, tachypneic at times. Course rhonchi throughout. Breath sounds equal bilaterally. Observe frothy secretions present in oropharynx. GASTROINTESTINAL: Abdomen soft, round, able to determine tenderness, nondistended. GENITOURINARY: Without palpable bladder distension. Anthony catheter in place clear pink tinged yellow urine. MUSCULOSKELETAL: Extremities without clubbing, cyanosis, or edema. No mottling or clubbing. NEUROLOGICAL: Nonresponsive to my exam. Pupils nonreactive. No corneal reflex. No spontaneous respirations on mechanical vent. No withdraw to central or peripheral pain stimuli. . Diagnostic Tests Laboratory Laboratory Tests Test 10/17/16 10/17/16 10/17/16 10/17/16 11:36 11:40 11:41 11:43 Lactic Acid Level 11.1 mmol/L (0.4-2.0) Ammonia 95 MCMOL/L (11-32) White Blood Count 13.2 TH/MM3 (4.0-11.0) Red Blood Count 4.71 MIL/MM3 (4.00-5.30) Hemoglobin 12.7 GM/DL (11.6-15.3) Hematocrit 41.0 % (35.0-46.0) Mean Corpuscular Volume 86.9 FL (80.0-100.0) Mean Corpuscular Hemoglobin 27.0 PG (27.0-34.0) Mean Corpuscular Hemoglobin 31.1 % Concent (32.0-36.0) Red Cell Distribution Width 16.9 % (11.6-17.2) Platelet Count 184 TH/MM3 (150-450) Mean Platelet Volume 10.0 FL (7.0-11.0) Neutrophils (%) (Auto) 60.9 % (16.0-70.0) Lymphocytes (%) (Auto) 32.5 % (9.0-44.0) Monocytes (%) (Auto) 5.0 % (0.0-8.0) Eosinophils (%) (Auto) 1.0 % (0.0-4.0) Basophils (%) (Auto) 0.6 % (0.0-2.0) Neutrophils # (Auto) 8.0 TH/MM3 (1.8-7.7) Lymphocytes # (Auto) 4.3 TH/MM3 (1.0-4.8) Monocytes # (Auto) 0.7 TH/MM3 (0-0.9) Eosinophils # (Auto) 0.1 TH/MM3 (0-0.4) Basophils # (Auto) 0.1 TH/MM3 (0-0.2) CBC Comment AUTO DIFF Differential Total Cells 100 Counted Neutrophils % (Manual) 50 % (16-70) Band Neutrophils % 1 % (0-6) Lymphocytes % 39 % (9-44) Monocytes % 2 % (0-8) Eosinophils % 2 % (0-4) Neutrophils # (Manual) 7.5 TH/MM3 (1.8-7.7) Metamyelocytes 2 % (0-1) Myelocytes 4 % (0-0) Differential Comment FINAL DIFF MANUAL Atypical Lymphocytes % (0-0) Platelet Estimate NORMAL (NORMAL) Platelet Morphology Comment NORMAL (NORMAL) Red Cell Morphology Comment NORMAL (NORMAL) Prothrombin Time 11.6 SEC (9.8-11.6) Prothromb Time International 1.0 RATIO Ratio Activated Partial 26.9 SEC Thromboplast Time (24.3-30.1) Urine Color YELLOW (YELLW/STRAW) Urine Turbidity HAZY (CLEAR) Urine pH 6.0 (5.0-8.5) Urine Specific [place] 1.013 (1.002-1.035) Urine Protein 100 mg/dL (NEG-TRACE) Urine Glucose (UA) 300 mg/dL (NEG) Urine Ketones NEG mg/dL (NEG) Urine Occult Blood SMALL (NEG) Urine Nitrite NEG (NEG) Urine Bilirubin NEG (NEG) Urine Urobilinogen LESS THAN 2.0 MG/DL (LESS THAN 2.0) Urine Leukocyte Esterase NEG (NEG) Urine RBC 6 /hpf (0-3) Urine WBC 20 /hpf (0-5) Urine Squamous Epithelial <1 /hpf (0-5) Cells Urine Amorphous Sediment RARE Urine Bacteria FEW /hpf (NONE) Microscopic Urinalysis Comment CATH-CULTURE IND Sodium Level 137 MEQ/L (136-145) Potassium Level 2.8 MEQ/L (3.5-5.1) Chloride Level 100 MEQ/L (98-107) Carbon Dioxide Level 17.7 MEQ/L (21.0-32.0) Anion Gap 19 MEQ/L (5-15) Blood Urea Nitrogen 9 MG/DL (7-18) Creatinine 1.51 MG/DL (0.50-1.00) Estimat Glomerular Filtration 39 ML/MIN (>89) Rate Random Glucose 311 MG/DL (74-106) Calcium Level 8.3 MG/DL (8.5-10.1) Total Bilirubin 0.4 MG/DL (0.2-1.0) Aspartate Amino Transf 48 U/L (15-37) (AST/SGOT) Alanine Aminotransferase 58 U/L (10-53) (ALT/SGPT) Alkaline Phosphatase 110 U/L (45-117) Total Creatine Kinase 104 U/L (26-192) Troponin I LESS THAN 0.02 NG/ML (0.02-0.05) Total Protein 6.9 GM/DL (6.4-8.2) Albumin 3.4 GM/DL (3.4-5.0) Thyroid Stimulating Hormone 2.530 uIU/ML 3rd Gen (0.358-3.740) Salicylates Level 3.9 MG/DL (2.8-20.0) Urine Opiates Screen NEG (NEG) Acetaminophen Level LESS THAN 2.0 MCG/ML (10.0-30.0) Urine Barbiturates Screen NEG (NEG) Urine Amphetamines Screen NEG (NEG) Urine Benzodiazepines Screen POS (NEG) Urine Cocaine Screen NEG (NEG) Urine Cannabinoids Screen POS (NEG) Ethyl Alcohol Level LESS THAN 3 MG/DL (0-5) Phosphorus Level 8.5 MG/DL (2.5-4.9) Blood Gas Puncture Site RT RADIAL Blood Gas Patient Temperature 98.6 Blood Gas HCO3 16 mmol/L (22-26) Blood Gas Base Excess -10.4 mmol/L (-2-2) Blood Gas Oxygen Saturation 83 % (90-100) Arterial Blood pH 7.25 (7.380-7.420) Arterial Blood Partial 37 mmHg (38-42) Pressure CO2 Arterial Blood Partial 67 mmHG Pressure O2 (61-120) Arterial Blood Oxygen Content 16.7 Vol % (12.0-20.0) Arterial Blood 3.7 % (0-4) Carboxyhemoglobin Arterial Blood Methemoglobin 2.2 % (0-2) Blood Gas Hemoglobin 14.3 G/DL (12.0-16.0) Oxygen Delivery Device VENTILATOR Blood Gas Ventilator Setting AC/20/500/+10 Blood Gas Inspired Oxygen 60 % Test 1/31/17 1/31/17 1/31/17 1/31/17 16:01 16:35 17:13 18:11 Lactic Acid Level 7.9 mmol/L (0.4-2.0) Nasal Screen MRSA (PCR) NEGATIVE (NEGATIVE) Blood Gas Puncture Site RT BRACHIAL CENTRAL LINE Blood Gas Patient Temperature 98.6 98.6 Blood Gas HCO3 13 mmol/L (22-26) Blood Gas Base Excess -12.8 mmol/L (-2-2) Blood Gas Oxygen Saturation 97 % (90-100) Arterial Blood pH 7.23 (7.380-7.420) Arterial Blood Partial 33 mmHg (38-42) Pressure CO2 Arterial Blood Partial 165 mmHg Pressure O2 (61-120) Arterial Blood Oxygen Content 22.1 Vol % (12.0-20.0) Arterial Blood 0.7 % (0-4) Carboxyhemoglobin Arterial Blood Methemoglobin 0.9 % (0-2) Blood Gas Hemoglobin 16.0 G/DL (12.0-16.0) Oxygen Delivery Device VENTILATOR AMBU BAG Blood Gas Ventilator Setting Blood Gas Inspired Oxygen 90 % 100 % Venous Blood pH 6.94 (7.360-7.400) Venous Blood Partial Pressure 63 mmHg (44-48) CO2 Venous Blood Partial Pressure 18 mmHg (35-40) O2 Venous Blood HCO3 13 mmol/L (22-26) Venous Blood Oxygen Saturation 9 % (70-76) Venous Blood Oxygen Content 1.7 Vol % (9.0-17.0) Venous Blood Base Excess -17.1 mmol/L (-2-2) Blood Gas Liter Flow 15 L/M Test 10/17/16 10/18/16 10/18/16 10/18/16 18:17 01:12 05:05 06:50 Prothrombin Time 14.7 SEC 14.0 SEC (9.8-11.6) (9.8-11.6) Prothromb Time International 1.3 RATIO 1.3 RATIO Ratio Lactic Acid Level 9.9 mmol/L 5.2 mmol/L (0.4-2.0) (0.4-2.0) Magnesium Level 2.3 MG/DL 1.5 MG/DL (1.5-2.5) (1.5-2.5) Acetaminophen Level 4.3 MCG/ML (10.0-30.0) Carbamazepine (Tegretol) Level LESS THAN 0.5 MCG/ML (4.0-12.0) Hepatitis A IgM Antibody NEGATIVE (NEGATIVE) Hepatitis B Surface Antigen NEGATIVE (NEGATIVE) Hepatitis B Core IgM Antibody NEGATIVE (NEGATIVE) Hepatitis C Antibody REACTIVE (NEGATIVE) Blood Gas Puncture Site ART LINE Blood Gas Patient Temperature 98.6 Blood Gas HCO3 12 mmol/L (22-26) Blood Gas Base Excess -11.1 mmol/L (-2-2) Blood Gas Oxygen Saturation 98 % (90-100) Arterial Blood pH 7.47 (7.380-7.420) Arterial Blood Partial 17 mmHg (38-42) Pressure CO2 Arterial Blood Partial 308 mmHg Pressure O2 (61-120) Arterial Blood Oxygen Content 18.6 Vol % (12.0-20.0) Arterial Blood 0.9 % (0-4) Carboxyhemoglobin Arterial Blood Methemoglobin 0.9 % (0-2) Blood Gas Hemoglobin 13.0 G/DL (12.0-16.0) Oxygen Delivery Device VENTILATOR Blood Gas Ventilator Setting COMMENT Blood Gas Inspired Oxygen 100 % White Blood Count 14.7 TH/MM3 (4.0-11.0) Red Blood Count 4.20 MIL/MM3 (4.00-5.30) Hemoglobin 11.3 GM/DL (11.6-15.3) Hematocrit 33.8 % (35.0-46.0) Mean Corpuscular Volume 80.5 FL (80.0-100.0) Mean Corpuscular Hemoglobin 26.8 PG (27.0-34.0) Mean Corpuscular Hemoglobin 33.3 % Concent (32.0-36.0) Red Cell Distribution Width 16.4 % (11.6-17.2) Platelet Count 122 TH/MM3 (150-450) Mean Platelet Volume 10.2 FL (7.0-11.0) Neutrophils (%) (Auto) 81.0 % (16.0-70.0) Lymphocytes (%) (Auto) 13.0 % (9.0-44.0) Monocytes (%) (Auto) 5.8 % (0.0-8.0) Eosinophils (%) (Auto) 0.0 % (0.0-4.0) Basophils (%) (Auto) 0.2 % (0.0-2.0) Neutrophils # (Auto) 11.9 TH/MM3 (1.8-7.7) Lymphocytes # (Auto) 1.9 TH/MM3 (1.0-4.8) Monocytes # (Auto) 0.9 TH/MM3 (0-0.9) Eosinophils # (Auto) 0.0 TH/MM3 (0-0.4) Basophils # (Auto) 0.0 TH/MM3 (0-0.2) CBC Comment DIFF FINAL Differential Comment Activated Partial 28.1 SEC Thromboplast Time (24.3-30.1) Sodium Level 144 MEQ/L (136-145) Potassium Level 3.3 MEQ/L (3.5-5.1) Chloride Level 111 MEQ/L (98-107) Carbon Dioxide Level 21.7 MEQ/L (21.0-32.0) Anion Gap 11 MEQ/L (5-15) Blood Urea Nitrogen 12 MG/DL (7-18) Creatinine 1.00 MG/DL (0.50-1.00) Estimat Glomerular Filtration 63 ML/MIN (>89) Rate Random Glucose 170 MG/DL (74-106) Calcium Level 6.6 MG/DL (8.5-10.1) Protein Corrected Calcium 7.3 MG/DL (8.5-10.1) Phosphorus Level 0.3 MG/DL (2.5-4.9) Total Bilirubin 0.5 MG/DL (0.2-1.0) Aspartate Amino Transf 133 U/L (15-37) (AST/SGOT) Alanine Aminotransferase 82 U/L (10-53) (ALT/SGPT) Alkaline Phosphatase 72 U/L (45-117) Total Protein 5.6 GM/DL (6.4-8.2) Albumin 3.0 GM/DL (3.4-5.0) Test 10/18/16 10/18/16 10/18/16 10/18/16 08:15 10:15 12:20 18:30 Blood Gas Puncture Site MARTINA ART LINE Blood Gas Patient Temperature 98.6 98.6 Blood Gas HCO3 19 mmol/L 22 mmol/L (22-26) (22-26) Blood Gas Base Excess -2.9 mmol/L -0.9 mmol/L (-2-2) (-2-2) Blood Gas Oxygen Saturation 97 % (90-100) 92 % (90-100) Arterial Blood pH 7.56 7.53 (7.380-7.420) (7.380-7.420) Arterial Blood Partial 22 mmHg (38-42) 26 mmHg (38-42) Pressure CO2 Arterial Blood Partial 140 mmHg 65 mmHg Pressure O2 (61-120) (61-120) Arterial Blood Oxygen Content 15.6 Vol % 14.0 Vol % (12.0-20.0) (12.0-20.0) Arterial Blood 1.1 % (0-4) 1.1 % (0-4) Carboxyhemoglobin Arterial Blood Methemoglobin 0.9 % (0-2) 0.9 % (0-2) Blood Gas Hemoglobin 11.2 G/DL 10.8 G/DL (12.0-16.0) (12.0-16.0) Oxygen Delivery Device VENTILATOR VENTILATOR Blood Gas Ventilator Setting PC/AC PC/AC Blood Gas Inspired Oxygen 50 % 50 % Ammonia 45 MCMOL/L (11-32) Sodium Level 143 MEQ/L (136-145) Potassium Level 4.1 MEQ/L (3.5-5.1) Chloride Level 107 MEQ/L (98-107) Carbon Dioxide Level 27.8 MEQ/L (21.0-32.0) Anion Gap 8 MEQ/L (5-15) Blood Urea Nitrogen 11 MG/DL (7-18) Creatinine 1.08 MG/DL (0.50-1.00) Estimat Glomerular Filtration 58 ML/MIN (>89) Rate Random Glucose 239 MG/DL (74-106) Calcium Level 6.8 MG/DL (8.5-10.1) Protein Corrected Calcium 7.6 MG/DL (8.5-10.1) Phosphorus Level 2.6 MG/DL (2.5-4.9) Magnesium Level 1.6 MG/DL (1.5-2.5) Total Protein 5.6 GM/DL (6.4-8.2) Human Chorionic Gonadotropin, LESS THAN 1 Quant MIU/ML (0-5) Test 10/19/16 10/19/16 04:50 04:55 Blood Gas Puncture Site ART LINE Blood Gas Patient Temperature 98.6 Blood Gas HCO3 32 mmol/L (22-26) Blood Gas Base Excess 7.6 mmol/L (-2-2) Blood Gas Oxygen Saturation 96 % (90-100) Arterial Blood pH 7.45 (7.380-7.420) Arterial Blood Partial 47 mmHg (38-42) Pressure CO2 Arterial Blood Partial 117 mmHg Pressure O2 (61-120) Arterial Blood Oxygen Content 15.9 Vol % (12.0-20.0) Arterial Blood 1.1 % (0-4) Carboxyhemoglobin Arterial Blood Methemoglobin 0.9 % (0-2) Blood Gas Hemoglobin 11.6 G/DL (12.0-16.0) Oxygen Delivery Device VENTILATOR Blood Gas Ventilator Setting COMMENT Blood Gas Inspired Oxygen 50 % White Blood Count 15.1 TH/MM3 (4.0-11.0) Red Blood Count 4.10 MIL/MM3 (4.00-5.30) Hemoglobin 11.0 GM/DL (11.6-15.3) Hematocrit 33.6 % (35.0-46.0) Mean Corpuscular Volume 81.9 FL (80.0-100.0) Mean Corpuscular Hemoglobin 26.9 PG (27.0-34.0) Mean Corpuscular Hemoglobin 32.9 % Concent (32.0-36.0) Red Cell Distribution Width 16.9 % (11.6-17.2) Platelet Count 102 TH/MM3 (150-450) Mean Platelet Volume 9.9 FL (7.0-11.0) Sodium Level 155 MEQ/L (136-145) Potassium Level 3.5 MEQ/L (3.5-5.1) Chloride Level 114 MEQ/L (98-107) Carbon Dioxide Level 35.8 MEQ/L (21.0-32.0) Anion Gap 5 MEQ/L (5-15) Blood Urea Nitrogen 8 MG/DL (7-18) Creatinine 0.88 MG/DL (0.50-1.00) Estimat Glomerular Filtration 74 ML/MIN (>89) Rate Random Glucose 150 MG/DL (74-106) Lactic Acid Level 2.1 mmol/L (0.4-2.0) Calcium Level 7.1 MG/DL (8.5-10.1) Protein Corrected Calcium 7.9 MG/DL (8.5-10.1) Phosphorus Level 0.8 MG/DL (2.5-4.9) Magnesium Level 2.0 MG/DL (1.5-2.5) Total Bilirubin 0.4 MG/DL (0.2-1.0) Aspartate Amino Transf 104 U/L (15-37) (AST/SGOT) Alanine Aminotransferase 97 U/L (10-53) (ALT/SGPT) Alkaline Phosphatase 78 U/L (45-117) Ammonia 27 MCMOL/L (11-32) Total Protein 5.6 GM/DL (6.4-8.2) Albumin 2.9 GM/DL (3.4-5.0) Result Diagram: 10/19/16 0455 10/19/16 0455 Microbiology Microbiology Date/Time Procedure Status Source Growth 10/17/16 11:40 Aerobic Blood Culture - Preliminary Resulted Blood Peripheral Yeast Species 10/17/16 11:40 Anaerobic Blood Culture - Preliminary Resulted Gram Positive Rods 10/17/16 11:40 Urine Culture - Final Complete Urine Catheterized Urine NO GROWTH IN 48 HOURS. 10/17/16 11:43 Aerobic Blood Culture - Preliminary Resulted Blood Peripheral NO GROWTH IN 2 DAYS 10/17/16 11:43 Anaerobic Blood Culture - Preliminary Resulted Gram Positive Rods . Imaging Last Impressions Chest X-Ray 10/19/16 0600 Signed Impressions: Service Date/Time: October 04:55 - CONCLUSION: Persistent left base pneumonia not significantly changed. Cornel Heath MD Brain Flow Nuclear Medicine 10/19/16 0000 Signed Impressions: Service Date/Time: October 10:14 - CONCLUSION: No visible brain activity identified. Jere Bright MD Head CT 10/18/16 0000 Signed Impressions: Service Date/Time: Tuesday, October 18, 2016 09:52 - CONCLUSION: 1. Abnormal development of diffuse low-attenuation in the basal ganglia as above likely related to anoxic brain injury and infarction. There is also diffuse cerebral swelling with effacement of the sulci and basilar cisterns as well as the ventricular system. This has worsened compared with October 17. Yuniel Melgoza MD Neck CTA 10/17/16 0000 Signed Impressions: Service Date/Time: Monday, October 17, 2016 14:01 - CONCLUSION: Normal examination. Dense infiltrate throughout the lungs Alin Child MD Head CTA 10/17/16 0000 Signed Impressions: Service Date/Time: Monday, October 17, 2016 14:01 - CONCLUSION: Normal examination. No evidence of aneurysms identified. Specifically the anterior communicating artery region is unremarkable. Alin Child MD . Procedures 10/17central line placed 10/17intubated Assessment and Plan Disease Oriented Problem List: (1) Cardiac arrest (2) Subarachnoid hemorrhage (3) ARDS (adult respiratory distress syndrome) (4) Coma (5) Acute respiratory failure with hypoxia Symptom Scale: (1) Encephalopathy 0-10 Scale: Unable to quantify Pertinent Non-Medical Issues Psychosocial:Lived at home with her . Also supported by her parents, a 10-year-old brother, multiple other extended family members. Currently unemployed. Spiritual: Family appreciative of ongoing site engineer support. Legal:Unable to participate in decision-making. Does not appear she will regain ability to participate. Per [place] statutes her would be legal decision maker. Ethical issues impacting care: Important Contacts Jamar Cervantes [phone] Prognosis This patient status post PEA arrest 2. Unknown amount of downtime during first PEA arrest which was sustained at home. Current brain imaging indicative severe hypoxic injury. EEG indicative of severe encephalopathy. Requiring pressors. Poor neurological exam minimal reflexes. Poor prognosis for survival. . Code Status: Full Code Plan * Legal decision maker: Patient due to clinical condition is unable to participate and will not regain capacity. According to [place] statutes health care proxy decision making falls to the spouse, Jamar. * Goals remain aggressive, they do not want to "give up" they do not wish to remove any life support or other treatments. Awaiting second clinical exam to confirm brain , Will notify family once neuro clinical exam complete. * FULL CODE. * SYMPTOMS: Encephalopathy- severe anoxic brain injury, status post PEA arrest, poor neuro assessment. Nonresponsive, no sedation. not expected to survive. Likely brain . * Palliative care will continue to follow during hospital course as condition evolves, to assist patient/decision-maker with understanding of medical conditions, weighing benefits/burdens of treatment options, for clarification of goals of treatment. Additionally will assist with any symptoms of palliative concern. Addendum: Dr. Riley completed second brain exam. TOD 1839. Attestation To help prompt me to consider important information that might be impacting today's encounter and assessment, information from prior notes written by myself or my colleagues may have been "brought forward" into today's note. My signature on this note, however, is an attestation that I personally performed the exam, history, and/or decision-making noted today, and, unless otherwise indicated, the interactions with patient, family, and staff as well as the review of records all occurred today. I also attest that the listed assessment and stated plan reflect my best clinical judgment today based on the combination of historical information, prior notes, and today's exam/ interactions. When time spent is documented, it refers only to time spent today by the signer, or if indicated, combined time spent today by collaborating physician/nurse practitioner. RAFIQ HECK Oct 19, 2016 17:31
[2016-10-19 17:47] LABS: BLOOD GAS BASE EXCESS 11.5 mmol/L (-2-2); BLOOD GAS CARBOXYHEMOGLOBIN 0.8 % (0-4); BLOOD GAS HCO3 39 mmol/L (22-26); BLOOD GAS METHEMOGLOBIN 0.8 % (0-2); BLOOD GAS O2 HGB SATURATION 85 % (90-100); BLOOD GAS PCO2 90 mmHg (38-42); BLOOD GAS PO2 64 mmHg (61-120); BLOOD GAS TOTAL HGB 10.9 G/DL (12.0-16.0); CRITICAL VALUE YES; DRAW SITE ART LINE; FIO2 100 %; LITER FLOW 10 L/M; OXYGEN DEVICE NASAL CANNULA; TEMP CORR TO 98.6
[2016-10-19 17:48] LABS: STAT YES
[2016-10-19 17:48] LABS: BLOOD GAS BASE EXCESS 12.1 mmol/L (-2-2); BLOOD GAS HCO3 37 mmol/L (22-26); BLOOD GAS METHEMOGLOBIN 0.9 % (0-2); BLOOD GAS O2 HGB SATURATION 98 % (90-100); BLOOD GAS OXYGEN CONTENT 15.3 Vol % (12.0-20.0); BLOOD GAS PCO2 55 mmHg (38-42); BLOOD GAS PO2 252 mmHg (61-120); BLOOD GAS TOTAL HGB 10.7 G/DL (12.0-16.0); TEMP CORR TO 98.6
[2016-10-19 17:49] LABS: CRITICAL VALUE YES; OXYGEN DEVICE VENTILATOR
[2016-10-19 17:50] LABS: DRAW SITE ART LINE; FIO2 50 %; STAT YES; VENT SETTINGS PCAC/R14/IP20/P5/IT1
--- NOTE | 2016-10-19 18:54 | HHI.NSPN ---
History Chief Complaint: intubated, unresponsive Interval History 36-year-old female history of IV drug use including IV dye allotted with recent use of Xanax found unresponsive after a questionable length of time at home with syringe across her chest. Patient's called EMS and patient coded for a PEA arrest. Initial CT scan with possible mild subarachnoid hemorrhage. Patient initially unresponsive to deep pain with no eye opening, pupils nonreactive. 10/18/16: Remains intubated, minimal IV sedation, unresponsive. 10/19/2016: Remains intubated. Cerebral blood flow study consistent with brain . Apnea test consistent with brain Exam Results Vital Signs Date Time Temp Pulse Resp B/P Pulse Ox O2 Delivery O2 Flow Rate FiO2 10/19/16 16:30 83 10.00 100 10/19/16 16:00 98.4 107 14 105/64 10/17/16 15:57 Ventilator Intake and Output 10/18/16 10/18/16 10/19/16 08:00 16:00 00:00 Intake Total 3470 ml 1672 ml 1736 ml Output Total 825 ml 350 ml 925 ml Balance 2645 ml 1322 ml 811 ml Physical Examination Intubated. Has had no intravenous sedation today. No narcotic medications today No spontaneous respirations over the ventilator. No eye opening to voice, deep pain, or spontaneous Does not respond to voice or follow commands Pupil 6 mm nonreactive Absent corneal and oculocephalic responses Absent bilateral oculovestibular responses No response to deep pain all extremities Absent cough and gag response Ryan's response absent bilateral No ankle clonus Absent plantar responses Lab, Micro, Other Results Laboratory Tests Test 10/19/16 10/19/16 10/19/16 10/19/16 04:50 04:55 16:30 16:40 Blood Gas Puncture Site ART LINE ART LINE ART LINE Blood Gas Patient Temperature 98.6 98.6 98.6 Blood Gas HCO3 32 mmol/L 37 mmol/L 39 mmol/L Blood Gas Base Excess 7.6 mmol/L 12.1 mmol/L 11.5 mmol/L Blood Gas Oxygen Saturation 96 % 98 % 85 % Arterial Blood pH 7.45 7.44 7.26 Arterial Blood Partial 47 mmHg 55 mmHg 90 mmHg Pressure CO2 Arterial Blood Partial 117 mmHg 252 mmHg 64 mmHg Pressure O2 Arterial Blood Oxygen Content 15.9 Vol % 15.3 Vol % 13.0 Vol % Arterial Blood 1.1 % 1.0 % 0.8 % Carboxyhemoglobin Arterial Blood Methemoglobin 0.9 % 0.9 % 0.8 % Blood Gas Hemoglobin 11.6 G/DL 10.7 G/DL 10.9 G/DL Oxygen Delivery Device VENTILATOR VENTILATOR NASAL CANNULA Blood Gas Ventilator Setting COMMENT PCAC/R14/IP20/P5/IT1 Blood Gas Inspired Oxygen 50 % 50 % 100 % White Blood Count 15.1 TH/MM3 Red Blood Count 4.10 MIL/MM3 Hemoglobin 11.0 GM/DL Hematocrit 33.6 % Mean Corpuscular Volume 81.9 FL Mean Corpuscular Hemoglobin 26.9 PG Mean Corpuscular Hemoglobin 32.9 % Concent Red Cell Distribution Width 16.9 % Platelet Count 102 TH/MM3 Mean Platelet Volume 9.9 FL Sodium Level 155 MEQ/L Potassium Level 3.5 MEQ/L Chloride Level 114 MEQ/L Carbon Dioxide Level 35.8 MEQ/L Anion Gap 5 MEQ/L Blood Urea Nitrogen 8 MG/DL Creatinine 0.88 MG/DL Estimat Glomerular Filtration 74 ML/MIN Rate Random Glucose 150 MG/DL Lactic Acid Level 2.1 mmol/L Calcium Level 7.1 MG/DL Protein Corrected Calcium 7.9 MG/DL Phosphorus Level 0.8 MG/DL Magnesium Level 2.0 MG/DL Total Bilirubin 0.4 MG/DL Aspartate Amino Transf 104 U/L (AST/SGOT) Alanine Aminotransferase 97 U/L (ALT/SGPT) Alkaline Phosphatase 78 U/L Ammonia 27 MCMOL/L Total Protein 5.6 GM/DL Albumin 2.9 GM/DL Blood Gas Liter Flow 10 L/M Last 24 hours Impressions Chest X-Ray 10/19/16 0600 Signed Impressions: Service Date/Time: October 04:55 - CONCLUSION: Persistent left base pneumonia not significantly changed. Cornel Heath MD Brain Flow Nuclear Medicine 10/19/16 0000 Signed Impressions: Service Date/Time: October 10:14 - CONCLUSION: No visible brain activity identified. Jere Bright MD Medical Decision Making Impression and Plan Impression: 1. The patient's history and clinical presentation, exam, apnea test, cerebral blood flow study, and imaging studies are all consistent with brain secondary to severe anoxic encephalopathy. Presently no evidence of brain stem or cortical function on clinical exam. Plan: Patient discussed with nursing staff Discussed with family in the intensive surgical care unit. Discussed with option trader this evening Findings are consistent with brain . Corby Riley MD Oct 19, 2016 18:54
[2016-10-19] MEDS: AZITHROMYCIN INJ 500 MG in SODIUM CHLOR 0.9% 250 ML INJ 250 ML IV SCH (19:37)
--- NOTE | 2016-10-19 20:31 | HHI.DS ---
Summary Note Date of : Oct 19, 2016 Time Of : 18:40 Admission Date Oct 17, 2016 at 13:49 Admitting Diagnosis Overdose, SAH, Post cardiac arrest. Diagnosis at Time of : Procedures Repeat cerebral blood flow study pending Brief History HPI This is a 36-year-old female brought in by EMS after sustaining a PE arrest at home. Per report by bystanders at the scene the patient is an IV drug user, and had been utilizing IV Dilaudid and additionally [place] Xanax. She had a 90 day supply of Xanax filled 3 days ago and all but10 pills are missing. Patient was coded in the field for a PEA arrest, she received bicarbonate 3 ampules of epinephrine, 2 mg of Narcan was intubated with an ET tube and had ROSC prior to arrival. Upon obtaining history from the , patient was found lying supine in bed, with a syringe lying on her chest, needle levi in her arm. The allowed her to sleep for a while, but when she did not respond he contacted EMS. Upon arrival of EMS chest compressions, ACLS were initiated. Upon arrival to the ED, imaging and laboratory evaluation was performed, initial drug screen negative, CT scan revealed possible subarachnoid hemorrhage. Initial evaluation revealed pupils nonresponsive, patient unresponsive to deep pain. Neurosurgery was contacted. CT angio of brain performed results pending. Critical care medicine was contacted for evaluation and management History PFSH Past Medical History Diminished Hearing: No ?: Unknown Social History Alcohol Use: No Tobacco Use: No Substance Use: Yes (dilaudid) Allergies-Medications Allergies-Medications (Allergen,Severity, Reaction): Coded Allergies: Penicillin (Verified Allergy, Unknown, 10/17/16) Reported Meds & Prescriptions Reported Meds & Active Scripts Active Ibuprofen 800 Mg Tab 800 Mg PO Q8HR PRN Reported Tegretol (Carbamazepine) 200 Mg Tab 200 Mg PO BID ROS Review of Systems Except as stated in HPI: all other systems reviewed are Neg CBC/BMP: 10/19/16 0455 10/19/16 0455 Significant Findings Laboratory Tests Test 10/17/16 10/17/16 10/17/16 10/17/16 11:36 11:40 11:41 11:43 Lactic Acid Level 11.1 mmol/L (0.4-2.0) Ammonia 95 MCMOL/L (11-32) White Blood Count 13.2 TH/MM3 (4.0-11.0) Mean Corpuscular Hemoglobin 31.1 % Concent (32.0-36.0) Neutrophils # (Auto) 8.0 TH/MM3 (1.8-7.7) Metamyelocytes 2 % (0-1) Myelocytes 4 % (0-0) Urine Turbidity HAZY (CLEAR) Urine Protein 100 mg/dL (NEG-TRACE) Urine Glucose (UA) 300 mg/dL (NEG) Urine Occult Blood SMALL (NEG) Urine RBC 6 /hpf (0-3) Urine WBC 20 /hpf (0-5) Urine Bacteria FEW /hpf (NONE) Potassium Level 2.8 MEQ/L (3.5-5.1) Carbon Dioxide Level 17.7 MEQ/L (21.0-32.0) Anion Gap 19 MEQ/L (5-15) Creatinine 1.51 MG/DL (0.50-1.00) Estimat Glomerular Filtration 39 ML/MIN (>89) Rate Random Glucose 311 MG/DL (74-106) Calcium Level 8.3 MG/DL (8.5-10.1) Aspartate Amino Transf 48 U/L (15-37) (AST/SGOT) Alanine Aminotransferase 58 U/L (10-53) (ALT/SGPT) Troponin I LESS THAN 0.02 NG/ML (0.02-0.05) Acetaminophen Level LESS THAN 2.0 MCG/ML (10.0-30.0) Urine Benzodiazepines Screen POS (NEG) Urine Cannabinoids Screen POS (NEG) Phosphorus Level 8.5 MG/DL (2.5-4.9) Blood Gas HCO3 16 mmol/L (22-26) Blood Gas Base Excess -10.4 mmol/L (-2-2) Blood Gas Oxygen Saturation 83 % (90-100) Arterial Blood pH 7.25 (7.380-7.420) Arterial Blood Partial 37 mmHg (38-42) Pressure CO2 Arterial Blood Methemoglobin 2.2 % (0-2) Test 10/17/16 10/17/16 10/17/16 10/17/16 16:01 17:13 18:11 18:17 Lactic Acid Level 7.9 mmol/L 9.9 mmol/L (0.4-2.0) (0.4-2.0) Blood Gas HCO3 13 mmol/L (22-26) Blood Gas Base Excess -12.8 mmol/L (-2-2) Arterial Blood pH 7.23 (7.380-7.420) Arterial Blood Partial 33 mmHg (38-42) Pressure CO2 Arterial Blood Partial 165 mmHg Pressure O2 (61-120) Arterial Blood Oxygen Content 22.1 Vol % (12.0-20.0) Venous Blood pH 6.94 (7.360-7.400) Venous Blood Partial Pressure 63 mmHg (44-48) CO2 Venous Blood Partial Pressure 18 mmHg (35-40) O2 Venous Blood HCO3 13 mmol/L (22-26) Venous Blood Oxygen Saturation 9 % (70-76) Venous Blood Oxygen Content 1.7 Vol % (9.0-17.0) Venous Blood Base Excess -17.1 mmol/L (-2-2) Prothrombin Time 14.7 SEC (9.8-11.6) Acetaminophen Level 4.3 MCG/ML (10.0-30.0) Carbamazepine (Tegretol) Level LESS THAN 0.5 MCG/ML (4.0-12.0) Hepatitis C Antibody REACTIVE (NEGATIVE) Test 10/18/16 10/18/16 10/18/16 10/18/16 01:12 05:05 06:50 08:15 Blood Gas HCO3 12 mmol/L 19 mmol/L (22-26) (22-26) Blood Gas Base Excess -11.1 mmol/L -2.9 mmol/L (-2-2) (-2-2) Arterial Blood pH 7.47 7.56 (7.380-7.420) (7.380-7.420) Arterial Blood Partial 17 mmHg (38-42) 22 mmHg (38-42) Pressure CO2 Arterial Blood Partial 308 mmHg 140 mmHg Pressure O2 (61-120) (61-120) White Blood Count 14.7 TH/MM3 (4.0-11.0) Hemoglobin 11.3 GM/DL (11.6-15.3) Hematocrit 33.8 % (35.0-46.0) Mean Corpuscular Hemoglobin 26.8 PG (27.0-34.0) Platelet Count 122 TH/MM3 (150-450) Neutrophils (%) (Auto) 81.0 % (16.0-70.0) Neutrophils # (Auto) 11.9 TH/MM3 (1.8-7.7) Prothrombin Time 14.0 SEC (9.8-11.6) Lactic Acid Level 5.2 mmol/L (0.4-2.0) Potassium Level 3.3 MEQ/L (3.5-5.1) Chloride Level 111 MEQ/L (98-107) Estimat Glomerular Filtration 63 ML/MIN (>89) Rate Random Glucose 170 MG/DL (74-106) Calcium Level 6.6 MG/DL (8.5-10.1) Protein Corrected Calcium 7.3 MG/DL (8.5-10.1) Phosphorus Level 0.3 MG/DL (2.5-4.9) Aspartate Amino Transf 133 U/L (15-37) (AST/SGOT) Alanine Aminotransferase 82 U/L (10-53) (ALT/SGPT) Total Protein 5.6 GM/DL (6.4-8.2) Albumin 3.0 GM/DL (3.4-5.0) Blood Gas Hemoglobin 11.2 G/DL (12.0-16.0) Test 10/18/16 10/18/16 10/18/16 10/19/16 10:15 12:20 18:30 04:50 Ammonia 45 MCMOL/L (11-32) Arterial Blood pH 7.53 7.45 (7.380-7.420) (7.380-7.420) Arterial Blood Partial 26 mmHg (38-42) 47 mmHg (38-42) Pressure CO2 Blood Gas Hemoglobin 10.8 G/DL 11.6 G/DL (12.0-16.0) (12.0-16.0) Creatinine 1.08 MG/DL (0.50-1.00) Estimat Glomerular Filtration 58 ML/MIN (>89) Rate Random Glucose 239 MG/DL (74-106) Calcium Level 6.8 MG/DL (8.5-10.1) Protein Corrected Calcium 7.6 MG/DL (8.5-10.1) Total Protein 5.6 GM/DL (6.4-8.2) Blood Gas HCO3 32 mmol/L (22-26) Blood Gas Base Excess 7.6 mmol/L (-2-2) Test 10/19/16 10/19/16 10/19/16 04:55 16:30 16:40 White Blood Count 15.1 TH/MM3 (4.0-11.0) Hemoglobin 11.0 GM/DL (11.6-15.3) Hematocrit 33.6 % (35.0-46.0) Mean Corpuscular Hemoglobin 26.9 PG (27.0-34.0) Platelet Count 102 TH/MM3 (150-450) Sodium Level 155 MEQ/L (136-145) Chloride Level 114 MEQ/L (98-107) Carbon Dioxide Level 35.8 MEQ/L (21.0-32.0) Estimat Glomerular Filtration 74 ML/MIN (>89) Rate Random Glucose 150 MG/DL (74-106) Lactic Acid Level 2.1 mmol/L (0.4-2.0) Calcium Level 7.1 MG/DL (8.5-10.1) Protein Corrected Calcium 7.9 MG/DL (8.5-10.1) Phosphorus Level 0.8 MG/DL (2.5-4.9) Aspartate Amino Transf 104 U/L (15-37) (AST/SGOT) Alanine Aminotransferase 97 U/L (10-53) (ALT/SGPT) Total Protein 5.6 GM/DL (6.4-8.2) Albumin 2.9 GM/DL (3.4-5.0) Blood Gas HCO3 37 mmol/L 39 mmol/L (22-26) (22-26) Blood Gas Base Excess 12.1 mmol/L 11.5 mmol/L (-2-2) (-2-2) Arterial Blood pH 7.44 7.26 (7.380-7.420) (7.380-7.420) Arterial Blood Partial 55 mmHg (38-42) 90 mmHg (38-42) Pressure CO2 Arterial Blood Partial 252 mmHg Pressure O2 (61-120) Blood Gas Hemoglobin 10.7 G/DL 10.9 G/DL (12.0-16.0) (12.0-16.0) Blood Gas Oxygen Saturation 85 % (90-100) Imaging Last 24 hours Impressions Chest X-Ray 10/19/16 0600 Signed Impressions: Service Date/Time: October 04:55 - CONCLUSION: Persistent left base pneumonia not significantly changed. Cornel Heath MD Last Impressions Head CT 10/17/16 1122 Signed Impressions: Service Date/Time: Monday, October 17, 2016 12:04 - CONCLUSION: Questionable subarachnoid hemorrhage with some prominence of the anterior communicating artery. CTA would be helpful. Alin Child MD Chest X-Ray 10/17/16 1122 Signed Impressions: Service Date/Time: Monday, October 17, 2016 11:39 - CONCLUSION: 1. Endotracheal tube in the right mainstem bronchus. This Should be retracted 4 cm Les Hairston MD Neck CTA 10/17/16 0000 Signed Impressions: Service Date/Time: Monday, October 17, 2016 14:01 - CONCLUSION: Normal examination. Dense infiltrate throughout the lungs Alin Child MD Head CTA 10/17/16 0000 Signed Impressions: Service Date/Time: Monday, October 17, 2016 14:01 - CONCLUSION: Normal examination. No evidence of aneurysms identified. Specifically the anterior communicating artery region is unremarkable. Alin Child MD Hospital Course This is a 36-year-old female brought in by EMS after sustaining a PE arrest at home. Per report by bystanders at the scene the patient is an IV drug user, and had been utilizing IV Dilaudid and additionally [place] Xanax. She had a 90 day supply of Xanax filled 3 days ago and all but10 pills are missing. Patient was coded in the field for a PEA arrest, she received bicarbonate 3 ampules of epinephrine, 2 mg of Narcan was intubated with an ET tube and had ROSC prior to arrival. Upon obtaining history from the , patient was found lying supine in bed, with a syringe lying on her chest, needle levi in her arm. The allowed her to sleep for a while, but when she did not respond he contacted EMS. Upon arrival of EMS chest compressions, ACLS were initiated. Upon arrival to the ED, imaging and laboratory evaluation was performed, initial drug screen negative, CT scan revealed possible subarachnoid hemorrhage. Initial evaluation revealed pupils nonresponsive, patient unresponsive to deep pain. Neurosurgery was contacted. CT angio of brain performed results pending. Critical care medicine was contacted for evaluation and management. Subjective 10/18 Last evening upon arrival to [facility], the patient went into PEA arrest with ROSC , epinephrine and sodium bicarbonate infusions initiated. Echo obtained previously revealed EF 10-20%. Dobutamine infusion added during the night. EEG was obtained in the ED which showed severe encephalopathic state. Neurology consulted, repeat CT brain pending. Expanded urine tox screen results pending. 10/[address] scan revealed diffuse edema related to anoxic brain injury and infarction. Subsequent clinical exam revealed no brainstem or cortical function. Patient initially breathing over mechanical ventilation, now absent. Plan for cerebral blood flow study this a.m... The cerebral blood flow study was consistent with brain . Repeat clinical exam performed at at 1633 pm, which revealed pupils fixed and dilated, unresponsive, negative gag, corneal reflexes. Cold calorics performed. Apnea test performed at 1641 per protocol, positive., completed at 1649. ABG results recorded under lab results. Multiple attempts were made to contact Jamar Cervantes, , via telephone unsuccessful. Parents were contacted by Palliative medicine and informed of the above. Dr. Riley performed clinical exam, which consistent with brain . Briseida Jackson MD Oct 19, 2016 20:31
--- NOTE | 2016-10-19 20:53 | HHI.PR ---
Review/Management Diagnosis severe anoxic encephalopathy Her examination as well as cerebral blood flow study and apnea study are all consistent with brain I agree that she meet all criteria for brain . Diagnosis/Plan: Subjective Subjective Comments No acute events reported Active Medications Current Medications Medications (Trade) Dose Ordered Sig/Kaveh Route Start Time Stop Time Status Last Admin Vecuronium Cedar 100 mg/ Sodium Chloride 100 ml @ 0 mls/hr TITRATE IV 10/17/16 13:15 (NS 1000 ml Inj) 1,000 ml @ 84 mls/hr [id number] IV 10/17/16 16:00 10/17/16 17:21 (NS Flush) 2 ml UNSCH PRN IV FLUSH 10/17/16 15:00 (NS Flush) 2 ml BID IV FLUSH 10/17/16 21:00 10/19/16 09:00 (Protonix Inj) 40 mg DAILY IV 10/18/16 09:00 10/19/16 08:57 (Tears Naturale Opth Soln) 1 drop TID EACH EYE 10/17/16 18:00 10/19/16 18:00 (Colace Liq) 100 mg Q12H G-TUBE 10/17/16 16:00 10/19/16 04:36 (Dulcolax Ec) 10 mg DAILY PRN PO 10/17/16 16:00 (Senna Liq) 17.6 mg Q12H PRN G-TUBE 10/17/16 16:00 Miscellaneous Information 1 [id number] XX 10/17/16 15:00 10/17/16 15:00 (Chlorhexidine 2% Cloth) 3 pack Taper DAILY@04 TOP 10/18/16 04:00 10/14/17 03:59 10/19/16 04:00 Chlorhexidine Gluconate 3 pack 3 pack UNSCH PRN TOP 10/17/16 15:00 Potassium Chloride 100 ml @ 50 mls/hr Q2H PRN IV 10/17/16 15:00 (KCl 20 Meq Premix Inj) 100 ml @ 50 mls/hr Q2H PRN IV 10/17/16 15:00 Potassium Chloride 40 meq 40 meq UNSCH PRN PO/TUBE 10/17/16 15:00 Potassium Chloride 100 ml @ 25 mls/hr UNSCH PRN IV 10/17/16 15:00 Potassium Chloride 100 ml @ 50 mls/hr Q2H PRN IV 10/17/16 15:00 (Magnesium Sulfate Inj/NS Inj) 100 ml @ 50 mls/hr UNSCH PRN IV 10/17/16 15:00 Magnesium Oxide 800 mg 800 mg UNSCH PRN PO 10/17/16 15:00 10/18/16 17:20 (Magnesium Sulfate Inj/NS Inj) 100 ml @ 50 mls/hr UNSCH PRN IV 10/17/16 15:00 Potassium Phosphate 2000 mg 2,000 mg Q4H PRN PO 10/17/16 15:00 (Sodium Phosphate Inj/NS 250 ml Inj) 250 ml @ 42 mls/hr UNSCH PRN IV 10/17/16 15:00 (KCl 40 Meq/30 ml Liq) 40 meq UNSCH PRN PO/TUBE 10/17/16 15:00 Potassium Phosphate 2000 mg 2,000 mg UNSCH PRN PO/TUBE 10/17/16 15:00 (Potassium Phosphate Inj/NS 250 ml Inj) 260 ml @ 42 mls/hr UNSCH PRN IV 10/17/16 15:00 10/18/16 08:13 Chlorhexidine Gluconate 15 ml 15 ml BID@08,20 MT 10/17/16 20:00 10/19/16 20:00 Metronidazole 100 ml @ 100 mls/hr Q8H IV 10/17/16 17:00 10/19/16 19:38 (Zithromax Inj/ NS 250 ml Inj) 250 ml @ 250 mls/hr Q24H IV 10/17/16 17:00 10/19/16 19:37 (D50w (Vial) Inj) 25 ml UNSCH PRN IV PUSH 10/17/16 15:00 Glucagon 1 mg 1 mg UNSCH PRN OTHER 10/17/16 15:00 Aztreonam 2000 mg/ Sodium Chloride 100 ml @ 200 mls/hr Q8H IV 10/18/16 00:00 10/19/16 19:37 Levetriacetam 500 mg/Sodium Chloride 105 ml @ 420 mls/hr Q12HR IV 10/17/16 21:00 10/19/16 08:56 Sodium Bicarbonate 150 meq/Dextrose 1,000 ml @ 150 mls/hr Q6H40M IV 10/17/16 19:00 10/19/16 14:50 (Levophed-Dextrose Drip) 250 ml @ 0 mls/hr TITRATE IV 10/18/16 07:15 10/19/16 04:36 (Brethine Inj) 1 mg UNSCH PRN SQ 10/18/16 07:15 (Tylenol 650 Mg/ 20 ml Liq) 650 mg Q4H PRN PO 10/18/16 10:45 10/18/16 11:16 Allergies Allergies Coded Allergies Penicillin (Verified Allergy, Unknown, 10/17/16) Exam I&O / VS 10/18/16 10/18/16 10/19/16 15:00 23:00 07:00 Intake Total 1672 ml 1736 ml 1583 ml Output Total 350 ml 925 ml 3675 ml Balance 1322 ml 811 ml -2092 ml Intake IV Total 1672 ml 1736 ml 1583 ml Output Urine Total 300 ml 925 ml 3625 ml Gastric Drainage Total 50 ml 0 ml 50 ml # Bowel Movements 0 0 0 Vital Signs Date Time Temp Pulse Resp B/P Pulse Ox O2 Delivery O2 Flow Rate FiO2 10/19/16 18:00 90 10/19/16 16:30 83 10.00 100 10/19/16 16:00 98.4 107 14 105/64 100 10/19/16 16:00 107 10/19/16 15:21 96 50 10/19/16 14:00 108 10/19/16 12:22 100 50 10/19/16 12:00 112 10/19/16 12:00 97.5 112 14 112/74 94 10/19/16 10:00 100 100 10/19/16 10:00 110 10/19/16 08:00 112 10/19/16 08:00 96.6 112 14 106/72 96 10/19/16 07:50 95 50 10/19/16 06:00 98 10/19/16 04:16 98 50 10/19/16 04:00 97.2 98 14 98/68 98 10/19/16 04:00 98 10/19/16 02:00 98 10/19/16 00:22 97 50 10/19/16 00:00 92 10/19/16 00:00 97.5 92 14 111/83 98 10/18/16 22:00 98 Exam Comments nonresponsive pupils 3mm bilaterally and nonreactive to light No EOM to occulocephalic maneuvers. absent corneal reflexes no spontaneous respirations no limb movement Objective Radiology Results cerebral blood flow study is consistent with brain Micro and Labs Laboratory Tests Test 10/19/16 10/19/16 10/19/16 10/19/16 04:50 04:55 16:30 16:40 Blood Gas Puncture Site ART LINE ART LINE ART LINE Blood Gas Patient Temperature 98.6 98.6 98.6 Blood Gas HCO3 32 37 39 Blood Gas Base Excess 7.6 12.1 11.5 Blood Gas Oxygen Saturation 96 98 85 Arterial Blood pH 7.45 7.44 7.26 Arterial Blood Partial 47 55 90 Pressure CO2 Arterial Blood Partial 117 252 64 Pressure O2 Arterial Blood Oxygen Content 15.9 15.3 13.0 Arterial Blood 1.1 1.0 0.8 Carboxyhemoglobin Arterial Blood Methemoglobin 0.9 0.9 0.8 Blood Gas Hemoglobin 11.6 10.7 10.9 Oxygen Delivery Device VENTILATOR VENTILATOR NASAL CANNULA Blood Gas Ventilator Setting COMMENT PCAC/R14/IP20/P5/IT1 Blood Gas Inspired Oxygen 50 50 100 White Blood Count 15.1 Red Blood Count 4.10 Hemoglobin 11.0 Hematocrit 33.6 Mean Corpuscular Volume 81.9 Mean Corpuscular Hemoglobin 26.9 Mean Corpuscular Hemoglobin 32.9 Concent Red Cell Distribution Width 16.9 Platelet Count 102 Mean Platelet Volume 9.9 Sodium Level 155 Potassium Level 3.5 Chloride Level 114 Carbon Dioxide Level 35.8 Anion Gap 5 Blood Urea Nitrogen 8 Creatinine 0.88 Estimat Glomerular Filtration 74 Rate Random Glucose 150 Lactic Acid Level 2.1 Calcium Level 7.1 Protein Corrected Calcium 7.9 Phosphorus Level 0.8 Magnesium Level 2.0 Total Bilirubin 0.4 Aspartate Amino Transf 104 (AST/SGOT) Alanine Aminotransferase 97 (ALT/SGPT) Alkaline Phosphatase 78 Ammonia 27 Total Protein 5.6 Albumin 2.9 Blood Gas Liter Flow 10 Date/Time Procedure Status Source Growth 10/17/16 11:43 Aerobic Blood Culture - Preliminary Resulted Blood Peripheral NO GROWTH IN 2 DAYS 10/17/16 11:43 Anaerobic Blood Culture - Preliminary Resulted Gram Positive Rods 10/17/16 11:40 Urine Culture - Final Complete Urine Catheterized Urine NO GROWTH IN 48 HOURS. Diagnostic Tests APNEA test is c/w brain Arvin Cornejo PhD Oct 19, 2016 20:53
[2016-10-20] MEDS: SODIUM BICARBONATE 8.4% INJ 150 MEQ in DEXTROSE 5% IN WATE 1000ML INJ 850 ML IV SCH ×4 (00:20→04:14)
[2016-10-20] MEDS: levETIRAcetam INJ 500 MG in SODIUM CHLORIDE 0.9% INJ 100 ML IV SCH (01:49)
[2016-10-20] MEDS: AZTREONAM 2,000 MG/NS 100 ML IV SCH ×2 (01:49)
[2016-10-20] MEDS: DOCUSATE SODIUM 100 MG/10 ML UDC G-TUBE SCH (01:50)
[2016-10-20] MEDS: SODIUM CHLOR 0.9% 1000 ML INJ 1,000 ML IV SCH (01:50)
[2016-10-20] MEDS: metroNIDAZOLE 500 MG INJ 100 ML IV SCH (01:50)
[2016-10-20] MEDS ORDERED: FUROSEMIDE 40 MG/4 ML VIAL ONE (03:26)
[2016-10-20] MEDS: CHLORHEXIDINE GLUCONATE 2 % 1 PACK (2 CLOTHS) TOP SCH (04:00)
[2016-10-20] MEDS: INSULIN ASPART SUPPLEMENTAL SCALE SQ SCH (04:15)
[2016-10-20] MEDS: POTASSIUM CHLOR 40 MEQ PREMIX 100 ML IV PRN (06:44)
[2016-10-20 07:20] LABS: BATH SALTS (MDPV) UR NEG (NEG); ECSTASY (MDMA) UR NEG (NEG); HEROIN (6-ACETYLMORPHINE) UR NEG (NEG); K2 SPICE UR NEG (NEG); OBMETHADONE UR NEG (NEG); OXYCODONE (PERCODAN) NEG (NEG); PHENCYCLIDINE URINE NEG (NEG)
[2016-10-20 07:35] VITALS: O2SAT 95; O2SAT 96
[2016-10-20] MEDS ORDERED: DOBUTamine PREMIX DRIP 250 ML ONE (07:40)
[2016-10-21 04:22] VITALS: O2SAT 100
[2016-10-23 11:44] LABS: STAT NO
== END 2016-10-19 18:40 | disposition expired | DRG 917 ==
LOC: NEPE 11:11 → NEDA 13:49 → N03A 16:18
PROVIDERS: ADMIT Anesthesiology; ATTEND Anesthesiology
PROC: 5A1945Z Respiratory Ventilation, 24-96 Consecutive Hours (ICD-10-PCS; principal; 2016-10-17)
PROC: 03HY32Z Insertion of Monitoring Device into Upper Artery, Percutaneous Approach (ICD-10-PCS; 2016-10-17)
DX: T40.2X1A Poisoning by other opioids, accidental (unintentional), initial encounter (principal); I60.9 Nontraumatic subarachnoid hemorrhage, unspecified; I46.9 Cardiac arrest, cause unspecified; G93.6 Cerebral edema; G92 Toxic encephalopathy; J69.0 Pneumonitis due to inhalation of food and vomit; I63.8 Other cerebral infarction; J80 Acute respiratory distress syndrome; G93.1 Anoxic brain damage, not elsewhere classified; E87.2 Acidosis; E72.20 Disorder of urea cycle metabolism, unspecified; N39.0 Urinary tract infection, site not specified; T42.4X1A Poisoning by benzodiazepines, accidental (unintentional), initial encounter; R40.2430 Glasgow coma scale score 3-8, unspecified time; G40.909 Epilepsy, unspecified, not intractable, without status epilepticus; E87.6 Hypokalemia; R74.8 Abnormal levels of other serum enzymes; R73.9 Hyperglycemia, unspecified; F11.10 Opioid abuse, uncomplicated; F17.210 Nicotine dependence, cigarettes, uncomplicated; F41.9 Anxiety disorder, unspecified; Z88.0 Allergy status to penicillin
CPT/HCPCS: 36556; 36600; 51702; 70450; 70496; 70498; 71010; 78606; 80048; 80053; 80074; 80156; 80307; 80320; 80329; 81001; 82140; 82550; 82805; 82948; 83605; 83735; 84100; 84155; 84443; 84484; 84702; 85007; 85025; 85027; 85610; 85730; 87040; 87086; 87106; 87186; 87205; 87641; 88307; 88331; 92950; 93005; 93306; 94002; 94003; 94640; 94664; 95819; 96361; 96365; 96375; A9539; C9113; G0480; G0481; J0171; J0456; J0461; J0610; J1250; J1815; J1940; J1953; J2060; J2250; J3010; J3370; J3480; J7030; J7050; J7060; J7070; P9045; Q9967